=== PATIENT | female | born 1955 | race Caucasian/White ===

== ENCOUNTER 2020-04-08 12:19 | Outpatient (REF) | payer OTHER, SELFPAY | END 2020-04-08 12:20 | disposition home or self-care (01) | LOC: HO.LAB 12:19 | PROVIDERS: Visit Provider Hospitalist | DX: Z20.822 Contact with and (suspected) exposure to COVID-19 (principal) | CPT/HCPCS: 36415; U0003 ==

== ENCOUNTER 2023-11-02 13:55 | Outpatient (AMB) | payer MEDICARE, SELFPAY ==
--- NOTE | 2023-11-02 14:04 | MHC.PC.OV ---
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 Allergies Sulfa (Sulfonamide Antibiotics) Allergy (Mild, Verified 11/02/23 14:09) Rash sulfamethoxazole [From Bactrim] Allergy (Unknown, Verified 11/02/23 14:09) Hives trimethoprim [From Bactrim] Allergy (Unknown, Verified 11/02/23 14:09) Hives Medication List - Last Reconciled 11/02/23 by Maureen Sapp MD acetaminophen (Tylenol) 325 mg PO QID PRN amoxicillin-pot clavulanate 875-125 mg 1 tab PO BID 10 days ascorbate calcium-bioflavonoid 1,000-200 mg (Esha-C with Bioflavonoids) tabs PO aspirin (Shoshana Low Dose Aspirin) 81 mg PO DAILY atorvastatin 80 mg PO DAILY calcitriol 0.5 mcg PO DAILY hydrochlorothiazide 12.5 mg PO DAILY ibuprofen (Advil) 200 mg PO Q6H PRN levothyroxine (Levo-T) 125 mcg PO DAILY losartan 50 mg PO DAILY magnesium oxide 400 mg PO DAILY metformin ER 750 mg PO BID Tobacco use date assessed: 11/02/23 Fall risk assessment: 1 Fall in past year (3- 4 steps on bottom of cellar stairs, no injury) Last assessed Fall Risk: 11/02/23 Dental Screening Dental Screen Date: 11/02/23 Did you have a dental visit in the last 12 months?: No Did you have a dental problem in the last 6 months where you did not have access to dental care?: No Was dental information given to patient?: Patient has dentist HPI HPI Comments History of Present Illness Details The patient is a 68-year-old female with a past medical history of hypertension, type 2 diabetes, hypothyroid, hyperlipidemia, osteoarthritis, breast mass presenting to [facility]. Endo: Follows with Dr Spence Type 2 diabetes: Patient is currently on metformin 500 mg twice daily. On Arb and statin. Sees Ophthalmology, Dr Rondon in [place]. Hypothyroid: s/p partial or total thyroidectomy CV: Follows with Dr. Guzman. She is taking hydrochlorothiazide 12.5 mg daily, losartan 50 mg daily, atorvastatin 80 mg daily and ASA 81mg daily. HS CRP 3.0. BP controlled on current medication MSK: She follows with [facility], Dr. Foster. She underwent left total knee replacement in 11/08/2022. Last hemoglobin in July 2023 was 11 3 with an MCV of 90.9 ROS CONSTITUTIONAL: Denies weight loss, fever and chills. HEENT: Denies changes in vision and hearing. RESPIRATORY: Denies SOB and cough. CV: Denies palpitations and CP GI: Denies abdominal pain, nausea, vomiting and diarrhea. : Denies dysuria and urinary frequency. MSK: Denies new myalgia and joint pain. SKIN: Denies rash and pruritus. NEUROLOGICAL: Denies headache PSYCHIATRIC: Denies recent changes in mood. PHYSICAL EXAM: GENERAL: Alert and oriented x 3. NAD EYES: EOMI. Anicteric. HENT: Moist mucous membranes. No scleral icterus. No cervical lymphadenopathy. LUNGS: Clear to auscultation bilaterally. CARDIOVASCULAR: Regular rate and rhythm. No murmur. No JVD. ABDOMEN: Soft, non-tender +bs EXTREMITIES: No edema. Non-tender. SKIN: No rashes or lesions. Warm. NEUROLOGIC: No focal neurological deficits. CN II-XII grossly intact PSYCHIATRIC: Cooperative. Appropriate mood and affect [facility] Medical History (Updated 11/14/23 @ 11:03 by Maureen Sapp MD) History of bone scan Hx of mammogram Obesity Hypothyroidism Hypercholesterolemia Hypertension Diabetes Dense breast tissue on mammogram Atypical ductal hyperplasia of left breast Arthritis Surgical History (Updated 11/02/23 @ 08:38 by Dagmar Nelson CMA) History of thyroidectomy Hx of knee surgery Family History (Updated 11/02/23 @ 08:44 by Dagmar Nelson CMA) Father Prostate cancer Maternal Grandfather Prostate cancer Son Testicular cancer, Onset Age: 37 Maternal Grandmother Brain tumor Sister ALS (amyotrophic lateral sclerosis) Social History (Updated 11/02/23 @ 14:16 by Hilda James CMA) Housing: House Alcohol intake: current Alcohol intake frequency: a few times a month Patient Tobacco Use Status: Never used Tobacco e-Cigarette/Vaping Use: Never Used service: No Current occupational status: employed 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 1. Little interest or pleasure in doing things: not at all 2. Feeling down, depressed, or hopeless: not at all 3. Trouble falling or staying asleep, or sleeping too much: not at all 4. Feeling tired or having little energy: not at all 5. Poor appetite or overeating: not at all 6. Feeling bad about yourself - or that you are a failure or have let yourself or your family down: not at all 7. Trouble concentrating on things, such as reading the newspaper or watching television: not at all 8. Moving or speaking so slowly that other people could have noticed. Or the opposite - being so fidgety or restless that you have been moving around a lot more than usual: not at all 9. Thoughts that you would be better off or of hurting yourself in some way: not at all Total score: 0 Depression Screening Interpretation: Negative Depression Screening Done: Yes 78656 - PHQ-9 Billing: Yes Source: Developed by Drs. Tony Lin, Fiorella Garza, Marcio Glass and colleagues, with an educational jen from [employer]. Thrive Questionnaire Date Thrive assessed: 11/02/23 I am a: Patient What is your living situation today?: I have a steady place to live Within the past 12 months, did the food you bought not last and you didn't have the money to get more?: Never true Within the past 12 months, did you worry whether your food would run out before you got money to buy more?: Never true Do you have trouble paying for medicines?: No Do you have trouble getting transportation to medical appointments?: No Do you have trouble paying your heating and electricity bill?: No Do you have trouble taking care of your child, family member or friend?: No Do you have trouble with day-to-day activities such as bathing, preparing meals, shopping, managing finances, etc.?: No Are you currently unemployed and looking for a job?: No Are you interested in more education?: No Please select the resources that you would like help with: None THRIVE Score: 0 AUDIT C Alcohol Use Questionnaire (AUDIT-C) 1. How often do you have a drink containing alcohol?: Monthly or less 2. How many drinks containing alcohol do you have on a typical day when you are drinking?: 1 or 2 3. How often do you have six or more drinks on one occasion?: Never Total Score: 1 CRISTOPHER-7 AMB Questionnaire CRISTOPHER-7 Date CRISTOPHER - 7 assessed: 11/02/23 Feeling nervous, anxious, or on edge: 0 = Not at all Not being able to stop or control worryin = Not at all Worrying too much about different things: 0 = Not at all Trouble relaxin = Not at all Being so restless that it is hard to sit still: 0 = Not at all Becoming easily annoyed or irritable: 0 = Not at all Feeling afraid as if something awful might happen: 0 = Not at all Total CRISTOPHER-7 score (0-4 normal; 5-9 mild; 10-14 moderate; 15-21 severe): 0 Source: Developed by Drs. Tony Lin, Fiorella Garza, Marcio Glass and colleagues, with an educational jen from [employer]. CRISTOPHER-7 Assessment Billing CRISTOPHER-7 Assessment Tool: CRISTOPHER-7 Assessment [id number] Physical exam (Primary Care) Vital Signs: Last Vital Signs Pulse 77 11/02/23 14:18 Resp 16 11/02/23 14:18 BP 126/80 11/02/23 14:18 Pulse Ox 94 11/02/23 14:18 Oxygen Delivery Method Room Air 11/02/23 14:18 BMI result Body Mass Index 33.2 Tobacco/Smoking Status: Tobacco use Status Tobacco use date assessed 11/02/23 11/02/23 14:20 Patient Tobacco Use Status Never used Tobacco 11/02/23 14:16 e-Cigarette/Vaping Use Never Used 11/02/23 14:16 PHQ-9: PHQ-9 Score PHQ-9: Total score 0 11/14/23 10:58 Depression Screening Interpretation: Negative Thrive Assessment: Date of Thrive Assessment Date Thrive assessed 11/02/23 11/02/23 15:20 Assessment and Plan Assessment & Plan (1) Atypical ductal hyperplasia of left breast: Code(s): N60.92 - Unspecified benign mammary dysplasia of left breast (2) Diabetes: Code(s): E11.9 - Type 2 diabetes mellitus without complications Qualifiers: Diabetes mellitus complication status: with other specified complication Diabetes mellitus retirement insulin use: without retirement use Diabetes mellitus type: type 2 Qualified Code(s): E11.69 - Type 2 diabetes mellitus with other specified complication Plan: continue follow up endocrinology (3) Hypertension: Code(s): I10 - Essential (primary) hypertension Qualifiers: Hypertension type: primary hypertension Qualified Code(s): I10 - Essential (primary) hypertension (4) Hypercholesterolemia: Code(s): E78.00 - Pure hypercholesterolemia, unspecified (5) Hypothyroidism: Code(s): E03.9 - Hypothyroidism, unspecified Qualifiers: Hypothyroidism type: unspecified Qualified Code(s): E03.9 - Hypothyroidism, unspecified Plan: monitor thyroid (6) Encounter to establish care: Code(s): Z76.89 - Persons encountering health services in other specified circumstances Plan: 68 y/o to establish care. past medical, surgical, social and family history reviewed Orders: Orders Complete Blood Count Auto Diff 3 Months E03.9 - Hypothyroidism, unspecified, I10 - Essential (primary) hypertension, E78.00 - Pure hypercholesterolemia, unspecified, N60.92 - Unspecified benign mammary dysplasia of left breast, Z76.89 - Persons encountering health services in other specified circumstances, E11.9 - Type 2 diabetes mellitus without complications Comprehensive Met. Panel 3 Months E03.9 - Hypothyroidism, unspecified, I10 - Essential (primary) hypertension, E78.00 - Pure hypercholesterolemia, unspecified, N60.92 - Unspecified benign mammary dysplasia of left breast, Z76.89 - Persons encountering health services in other specified circumstances, E11.9 - Type 2 diabetes mellitus without complications Lipid Panel 3 Months E03.9 - Hypothyroidism, unspecified, I10 - Essential (primary) hypertension, E78.00 - Pure hypercholesterolemia, unspecified, N60.92 - Unspecified benign mammary dysplasia of left breast, Z76.89 - Persons encountering health services in other specified circumstances, E11.9 - Type 2 diabetes mellitus without complications Hemoglobin A1c 3 Months E03.9 - Hypothyroidism, unspecified, I10 - Essential (primary) hypertension, E78.00 - Pure hypercholesterolemia, unspecified, N60.92 - Unspecified benign mammary dysplasia of left breast, Z76.89 - Persons encountering health services in other specified circumstances, E11.9 - Type 2 diabetes mellitus without complications TSH reflex Free T4 3 Months E11.9 - Type 2 diabetes mellitus without complications Vitamin B12 and Folate 3 Months E03.9 - Hypothyroidism, unspecified Medications: New amoxicillin-pot clavulanate 875-125 mg 1 tab PO BID 20 tabs 0RF 10 days mecobalamin (vitamin B12) can sub soft gel 1,000 mcg PO DAILY 90 tabs 3RF 90 days tamoxifen 20 mg PO DAILY Coding Level of Care Code New Pt Level 4 (25791) Complex EM visit Add On G2211 Diagnoses Atypical ductal hyperplasia of left breast N60.92 Type 2 diabetes mellitus with other specified complication, without long-term current use of insulin E11.69 Diabetes mellitus complication status: with other specified complication 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
[2023-11-02 14:18] VITALS: BP 126/80; PULSE 77; RESP 16; O2SAT 94; BMI 33.2
== END 2023-11-02 15:22 | disposition home or self-care (01) ==
PROVIDERS: PCP Internal Medicine; Visit Provider Internal Medicine
DX: E11.69 Type 2 diabetes mellitus with other specified complication (principal); N60.92 Unspecified benign mammary dysplasia of left breast; I10 Essential (primary) hypertension; E78.00 Pure hypercholesterolemia, unspecified; E03.9 Hypothyroidism, unspecified; Z76.89 Persons encountering health services in other specified circumstances
CPT/HCPCS: 99204; G2211

== ENCOUNTER 2024-02-08 11:53 | Outpatient (REF) | payer MEDICARE, SELFPAY ==
[2024-02-08 14:24] LABS: MANUAL DIFF FLAG NO
[2024-02-08 14:40] LABS: Basophils Absolute Auto 0.1 X10*3/uL (0.0-0.2); Basophils Percent Auto 0.8 % (0-2); Eosinophils Absolute Auto 0.2 X10*3/uL (0.0-0.4); Eosinophils Percent Auto 3.1 % (0-4); Hematocrit 34.8 % (37.0-47.0); Hemoglobin 11.5 g/dl (12.0-16.0); Imm Gran Abs Auto 0.03 X10*3/uL (0.00-0.03); Imm Gran Pct Auto 0.5 % (0.0-0.4); Lymphocytes Absolute Auto 1.9 X10*3/uL (1.2-4.9); Lymphocytes Percent Auto 29.6 % (20-40); Mean Corpuscular Hemoglobin 29.5 pg (27.0-33.0); Mean Corpuscular Volume 89.2 fL (80.0-98.0); Monocytes Absolute Auto 0.4 X10*3/uL (0.1-1.2); Monocytes Percent Auto 6.8 % (2-11); Neutrophils Absolute Auto 3.9 x10*3/uL (2.0-8.3); Neutrophils Percent Auto 59.2 % (45-73); Platelet Count 299 X10*3/uL (160-400); Red Cell Distribution Width 13.8 % (11.0-16.0); White Blood Count 6.5 X10*3/uL (4.8-10.8)
[2024-02-08 15:08] LABS: Estimated Average Glucose 157 mg/dL; Hemoglobin A1C 147.5085 umol/L; Hemoglobin A1c % 7.1 % (<6.0); Total Hemoglobin (HGBA1C) 2700.7325 umol/L
[2024-02-08 15:51] LABS: Folate 12.6 ng/mL (> or = 4.0); Vitamin B12 878 pg/mL (200-900)
[2024-02-08 16:50] LABS: Alanine Aminotransferase 18 U/L (0-31); Albumin Level 4.3 g/dL (3.5-5.0); Anion Gap 17 (12-20); Aspartate Amino Transferase 24 U/L (5-31); Bilirubin Total 0.5 mg/dL (0.0-1.0); Blood Urea Nitrogen 22 mg/dL (9-16); Calcium 10.1 mg/dL (8.4-10.2); Carbon Dioxide 24 mmol/L (22-29); Chloride 104 mmol/L (96-108); Cholesterol 182 mg/dL (<200); Estimated Glomerular Filt Rate 58; Glucose Random 138 mg/dL (60-115); HDL Cholesterol 53 mg/dL (>40); LDL Cholesterol Calculated 101 mg/dL (<100); Potassium 3.8 mmol/L (3.3-5.1); Sodium 141 mmol/L (135-145); TSH reflex Free T4 3.04 uIU/mL (0.32-4.0); Total Protein 7.2 g/dL (6.5-8.0); Triglycerides 143 mg/dL (<150)
[2024-02-08 17:27] LABS: Alkaline Phosphatase 81 U/L (39-117)
== END 2024-02-08 11:54 | disposition home or self-care (01) ==
LOC: HO.WFDLDS 11:53
PROVIDERS: Visit Provider Internal Medicine
DX: E03.9 Hypothyroidism, unspecified (principal); I10 Essential (primary) hypertension; E78.00 Pure hypercholesterolemia, unspecified; N60.92 Unspecified benign mammary dysplasia of left breast; Z76.89 Persons encountering health services in other specified circumstances; E11.9 Type 2 diabetes mellitus without complications
CPT/HCPCS: 36415; 80053; 80061; 82607; 82746; 83036; 84443; 85025

== ENCOUNTER 2024-02-11 08:50 | Outpatient (AMB) | payer MEDICARE, SELFPAY ==
--- NOTE | 2024-02-11 09:06 | MHC.PC.OV ---
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 Allergies amoxicillin Allergy (Severe, Verified 02/11/24 09:08) Rash Sulfa (Sulfonamide Antibiotics) Allergy (Mild, Verified 02/11/24 09:07) Rash sulfamethoxazole [From Bactrim] Allergy (Unknown, Verified 02/11/24 09:07) Hives trimethoprim [From Bactrim] Allergy (Unknown, Verified 02/11/24 09:07) Hives Tobacco use date assessed: 11/02/23 Dental Screening Dental Screen Date: 11/02/23 HPI HPI Comments History of Present Illness Details The patient is a 68-year-old female with a past medical history of hypertension, type 2 diabetes, hypothyroid, hyperlipidemia, osteoarthritis, breast mass presenting for follow up Endo: Followed with Dr Spence. She is seeing his replacement on Wednesday Type 2 diabetes: Patient is currently on metformin 500 mg twice daily. A1C is 7.1% On Arb and statin. Sees Ophthalmology, Dr Rondon in [place]. Hypothyroid: s/p partial or total thyroidectomy CV: Follows with Dr. Guzman. She is taking hydrochlorothiazide 12.5 mg daily, losartan 50 mg daily, atorvastatin 80 mg daily and ASA 81mg daily. HS CRP 3.0. BP controlled on current medication MSK: She follows with [facility], Dr. Foster. She underwent left total knee replacement in 11/08/2022, right knee replacement 12/03/23 Last hemoglobin in July 2023 was 11.3 with an MCV of 90.9 Colon cancer screening: Colonoscopy at [facility] with Dr Brunner. ROS CONSTITUTIONAL: Denies weight loss, fever and chills. HEENT: Denies changes in vision and hearing. RESPIRATORY: Denies SOB and cough. CV: Denies palpitations and CP GI: Denies abdominal pain, nausea, vomiting and diarrhea. : Denies dysuria and urinary frequency. MSK: Denies new myalgia and joint pain. SKIN: Denies rash and pruritus. NEUROLOGICAL: Denies headache PSYCHIATRIC: Denies recent changes in mood. PHYSICAL EXAM: GENERAL: Alert and oriented x 3. NAD EYES: EOMI. Anicteric. HENT: Moist mucous membranes. No scleral icterus. No cervical lymphadenopathy. LUNGS: Clear to auscultation bilaterally. CARDIOVASCULAR: Regular rate and rhythm. No murmur. No JVD. ABDOMEN: Soft, non-tender +bs EXTREMITIES: No edema. Non-tender. SKIN: No rashes or lesions. Warm. NEUROLOGIC: No focal neurological deficits. CN II-XII grossly intact PSYCHIATRIC: Cooperative. Appropriate mood and affect [facility] Medical History (Updated 11/14/23 @ 11:03 by Maureen Sapp MD) History of bone scan Hx of mammogram Obesity Hypothyroidism Hypercholesterolemia Hypertension Diabetes Dense breast tissue on mammogram Atypical ductal hyperplasia of left breast Arthritis Surgical History (Updated 11/02/23 @ 08:38 by Dagmar Nelson [facility]) History of thyroidectomy Hx of knee surgery Family History (Updated 02/11/24 @ 09:17 by Hilda James [facility]) Father Prostate cancer Maternal Grandfather Prostate cancer Son Testicular cancer, Onset Age: 37 Maternal Grandmother Brain tumor Sister ALS (amyotrophic lateral sclerosis) Social History (Updated 11/02/23 @ 14:16 by Hilda James [facility]) Housing: House Alcohol intake: current Alcohol intake frequency: a few times a month Patient Tobacco Use Status: Never used Tobacco e-Cigarette/Vaping Use: Never Used service: No Current occupational status: employed 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 1. Little interest or pleasure in doing things: not at all 2. Feeling down, depressed, or hopeless: not at all 3. Trouble falling or staying asleep, or sleeping too much: not at all 4. Feeling tired or having little energy: not at all 5. Poor appetite or overeating: not at all 6. Feeling bad about yourself - or that you are a failure or have let yourself or your family down: not at all 7. Trouble concentrating on things, such as reading the newspaper or watching television: not at all 8. Moving or speaking so slowly that other people could have noticed. Or the opposite - being so fidgety or restless that you have been moving around a lot more than usual: not at all 9. Thoughts that you would be better off or of hurting yourself in some way: not at all Total score: 0 Depression Screening Interpretation: Negative Depression Screening Done: Yes Source: Developed by Drs. Tony Lin, Fiorella Garza, Marcio Glass and colleagues, with an educational jen from [employer]. Thrive Questionnaire Date Thrive assessed: 02/11/24 I am a: Patient What is your living situation today?: I have a steady place to live THRIVE Score: 0 CRISTOPHER-7 AMB Questionnaire CRISTOPHER-7 Date CRISTOPHER - 7 assessed: 11/02/23 Source: Developed by Drs. Tony Lin, Fiorella Garza, Marcio Glass and colleagues, with an educational jen from [employer]. Physical exam (Primary Care) Tobacco/Smoking Status: Tobacco use Status Tobacco use date assessed 11/02/23 02/11/24 09:11 Patient Tobacco Use Status Never used Tobacco 02/11/24 09:11 e-Cigarette/Vaping Use Never Used 02/11/24 09:11 PHQ-9: PHQ-9 Score PHQ-9: Total score 0 02/11/24 09:11 Depression Screening Interpretation: Negative Thrive Assessment: Date of Thrive Assessment Date Thrive assessed 02/11/24 02/11/24 09:11 Coding Level of Care Code Est Pt Level 4 (15992) Diagnoses Primary hypertension I10 Hypertension type: primary hypertension Type 2 diabetes mellitus with other specified complication, without long-term current use of insulin E11.69 Diabetes mellitus type: type 2 Diabetes mellitus correction insulin use: without correction use Diabetes mellitus complication status: with other specified complication Assessment & Plan Assessment & Plan (1) Hypertension: Code(s): I10 - Essential (primary) hypertension Category: Medical Qualifiers: Hypertension type: primary hypertension Qualified Code(s): I10 - Essential (primary) hypertension Plan: controlled on current medication (2) Diabetes: Code(s): E11.9 - Type 2 diabetes mellitus without complications Category: Medical Qualifiers: Diabetes mellitus type: type 2 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 Has follow up scheduled with endocrine on Wednesday
[2024-02-11 09:15] VITALS: BP 108/76; PULSE 91; O2SAT 97; BMI 31.6
== END 2024-02-11 10:47 | disposition home or self-care (01) ==
PROVIDERS: PCP Internal Medicine; Visit Provider Internal Medicine
DX: I10 Essential (primary) hypertension (principal); E11.69 Type 2 diabetes mellitus with other specified complication

== ENCOUNTER → 2024-02-11 08:50 | Outpatient (BNVA) | payer MEDICARE, SELFPAY | PROVIDERS: PCP Internal Medicine; Visit Provider Internal Medicine | DX: E11.69 Type 2 diabetes mellitus with other specified complication (principal); I10 Essential (primary) hypertension; Z79.82 Long term (current) use of aspirin; Z79.84 Long term (current) use of oral hypoglycemic drugs; Z79.899 Other long term (current) drug therapy; Z96.653 Presence of artificial knee joint, bilateral | CPT/HCPCS: 96127; 99212 ==

== ENCOUNTER → 2024-04-28 14:42 | Outpatient (BNVA) | payer MEDICARE, SELFPAY | PROVIDERS: PCP Internal Medicine; Visit Provider Internal Medicine | DX: I10 Essential (primary) hypertension (principal); E11.9 Type 2 diabetes mellitus without complications; E03.9 Hypothyroidism, unspecified; E78.5 Hyperlipidemia, unspecified; N20.0 Calculus of kidney | CPT/HCPCS: 96127; 99212 ==

== ENCOUNTER 2024-06-28 09:33 | Outpatient (REF) | payer MEDICARE, SELFPAY ==
[2024-06-28 13:33] LABS: Influenza A PCR NEGATIVE (Negative); Influenza B PCR NEGATIVE (Negative); Resp Syncy Virus RNA Qual PCR NEGATIVE (Negative); SARS COV2 PCR INHOUSE POSITIVE (Negative)
--- OUTSIDE RECORDS SUMMARY | 2024-06-28 13:46 | XMS_ITS | Clinical Summary ---
Author Organization [facility] Address [address] [place] [address] Care Team Providers Care Operating Room Nurse Name Role Phone Unavailable Primary Care Provider [...]
--- OUTSIDE RECORDS SUMMARY | 2024-06-28 13:46 | XMS_ITS | Continuity of Care Document ---
Author Organization [facility] Address [address] [place] [address] Phone [phone] Care Team Providers Care Six Pack Packer Name Role Phone Joycelyn See NP Care Team Information Receiv er [phone] Maureen Griffith M.D. Care Team Information Medical Affairs Manager [phone] Problems Active Problems Provider Date Hypothyroidism Stu [...] the PM lilly Hodges M.D. 11/05/2023 Caltrate 600+[id number] Tablets take two tab in the Am and two in pm Stu Spence M.D. 10/01/2022 Itydsqeprbasjsetjnq07. 5mg Capsules Take 1 Capsule By Mouth Once Daily For Blood Pressure 90caps Donna Hodges M.D. 08/31/2022 Levothyroxine Otapbe436ksm Tablets Take 1 tablet by mouth once daily 90paige Hodges M.D. 08/20/2022 Losartan Mjneunuqs251fw Tablets Take half Tablet By Mouth Once Daily Aldo Madera M.D. Freestyle Lite TestStrips Use 1 Strip To Check Glucose Once Daily Fiorella Aguirre Atorvastatin Uocidnd16jf Tablets Take 1 Tablet By Mouth AT Bedtime Aldo Madera M.D. Metformin HCL JK415zr Tablets ER 24HR take 1 tablet by mouth twice a day 90tabs Timothy Fiorella Magnesium-Kqzbs455(240 Mg) mg Tablets Take 1 Tablet By Mouth Once Daily [facility] Tamoxifen Xkzxjby73gn Tablets Take 1/2 (One-Half) Tablet By Mouth [...] Lab Albumin 4.8 GM/DL (3.4-4.8) Calcium 10/08/2022 [facility] Calcium 9.1 mg/dL (8.6-10.5 ) TSH With Reflex To FT4 10/01/2022 [facility] TSH With Reflex To FT4 0.60 uIU/mL (0.4-4.2) Calcium 10/01/2022 [facility] Calcium 10.3 mg/dL (8.6-10.5 ) Albumin 10/01/2022 [facility] Albumin 4.9 GM/DL High (3.4-4.8) Glucose Fingerstick 10/01/2022 Inhouse Glucose Fingerstick 130 1 Vitamin D deficiency has been defined by the [place] [employer] and an Endocrine Society practice guideline as a level of serum 25-OH vitamin D less than 20 ng/mL (1,2). The Endocrine Society went on to further define vitamin D insufficiency as a level between 21 and 29 ng/mL (2). 1. IOM ([place] [employer]). 2010. Dietary reference intakes for [...]
== END 2024-06-28 09:34 | disposition home or self-care (01) ==
LOC: HO.LNP 09:33
PROVIDERS: PCP Internal Medicine; Visit Provider Nurse Practitioner Family
DX: R50.9 Fever, unspecified (principal); R09.89 Other specified symptoms and signs involving the circulatory and respiratory systems; R68.89 Other general symptoms and signs
CPT/HCPCS: 0241U; 99212

== ENCOUNTER → 2024-06-28 09:33 | Outpatient (AMB) | payer MEDICARE, SELFPAY ==
--- OUTSIDE RECORDS SUMMARY | 2024-06-28 10:21 | XMS_ITS ---
Author Organization [facility] [employer] [facility] Address [address] [place] [id number] Care Team Providers Care Solar Panel Technician Name Role Phone YULY CABA Primary Care Provider [phone] APPLEPIOTRDAWITET Unavailable [phone] REASON FOR VISIT Refills MEDICATIONS Medication SIG (Take, Route, Frequency, Duration) Notes Start Date End Date Status Calcitriol 0.5 MCG 1 capsule Orally once a day Unknown Caltrate 600+D 2 in the am and 1 in the pm Unknown Advil 200 MG 1 tablet with food or milk as needed Orally Three times a day Unknown Acetaminophen ER 650 MG 2 tablets as nee ded Orally every 8 hrs Unknown hydroCHLOROthiazide 12.5 MG 1 tablet in the morning Oral Once a day Unknown FreeStyle Lancets - use as directed once daily for 90 days 09/16/2023 Active FreeStyle Lite Test - as directed In Vitro once daily for 90 days 09/16/2023 Active Tamoxifen Citrate 10 MG 1/2 tab Orally daily 5mg daily Unknown Albuterol Sulfate HFA 108 (90 Base) MCG/ACT 2 puff as needed Inhalation every 4 hrs for 30 days 04/22/2023 Unknown Ozempic (0.25 or 0.5 MG/DOSE) 2 MG/3ML 0.25mg Subcutaneous weekly for 30 days 04/22/2023 Unknown Losartan Potassium 50 MG Take 1 tablet b y mouth once daily for 90 Unknown Meclizine HCl 25 MG 1 tablet as needed Orally every 12 hrs for 30 days 03/12/2023 Unknown metFORMIN HCl ER 750 MG 1 tab with meal Orally twice a day for 90 days 08/10/2023 Unknown Medrol 4 MG as directed Orally daily for 6 days 04/22/2023 Unknown Azithromycin 250 MG as directed Orally daily for 5 days 04/22/2023 Unknown Atorvastatin Calcium 80 MG 1 tablet Oral ly Once a day Unknown Levothyroxine Sodium 125 MCG 1 tablet in the morning on an empty stomach Orally Once a day Unknown AeroChamber MV - as directed for 30 days 04/22/2023 Unknown Encounters Encounter Location Date Provider Diagnosis [address] [id number] 09/16/2023 NORA VELASCO Type 2 diabetes mellitus with diabetic peripheral angiopathy without gangrene, without long-term current use of insulin E11.51 ASSESSMENTS Encounter Date Diagnosis Assessment Notes Treatment Notes Treatment Clinical Notes Section Notes 09/16/2023 Type 2 diabetes mellitus with diabetic peripheral angiopathy without gangrene, without long-term current use of insulin (ICD-10 - E11.51) PLAN OF TREATMENT Medication Medication Name Sig Start Date Stop Date Notes FreeStyle Lancets - use as directed once daily for 90 days 09/16/2023 FreeStyle Lite Test - as directed In Vit ro once daily for 90 days 09/16/2023 Progress Notes * SALIMA GONZALEZ:[birth year] (68 yo F)Acc No.[id number]:09/16/2023 Patient:??FILIBERTO GONZALEZA :1955?Age:68 Y?Sex:Fe male Address:[address] [place] [id number] * Refills?? Start FreeStyle Lite Test Strip, -, In Vitro, 90, as directed, once daily, 90 days, Refills=3 Start FreeStyle Lancets Miscellaneous, -, 90, use as directed once daily, 90 days, Refills=3 Subjective: * Chief Complaints: * ?Refills * Medical History:?? * Surgical History:?? * Hospitalization/Major Diagno stic Procedure:?? * Medications:??UnknownTamoxif en Citrate 10 MG Tablet 1/2 tab Orally daily 5mg daily, Notes to Pharmacist: 5mg dailyAdvil 200 MG Tablet 1 tablet with food or milk as needed Orally Three times a day Acetaminophen ER 650 MG Tablet Extended Release 2 tablets as needed Orally every 8 hrs Calcitriol 0.5 MCG Capsule 1 capsule Orally once a day Caltrate 600+D , Notes to Pharmacist: 2 in the am and 1 in the pmhydroCHLOROthiazide 12.5 MG Tablet 1 tablet in the morning Oral Once a day Atorvastatin Calcium 80 MG Tablet 1 tablet Orally Once a day Levothyroxine Sodium 125 MCG Tablet 1 tablet in the morning on an empty stomach Orally Once a day AeroChamber MV - Miscellaneous as directed metFORMIN HCl ER 750 MG Tablet Extended Release 24 Hour 1 tab with meal Orally twice a day Losartan Potassium 50 MG Tablet Take 1 tablet by mouth once daily Meclizine HCl 25 MG Tablet 1 tablet as needed Orally every 12 hrs Medrol 4 MG Tablet Therapy Pack as directed Orally daily take as packaged directedAzithromycin 250 MG Tablet as directed Orally daily take 2 tabs day one then one tab daily x 4 daysAlbuterol Sulfate HFA 108 (90 Base) MCG/ACT Aerosol Solution 2 puff as needed Inhalation every 4 hrs take with spacerOzempic (0.25 or 0.5 MG/DOSE) 2 MG/3ML Solution Pen-injector 0.25mg Subcutaneous weekly Unknown Tamoxifen Citrate 10 MG Tablet 1/2 tab Orally daily 5mg daily, Notes to Pharmacist: 5mg dailyUnknown Advil 200 MG Tablet 1 tablet with food or milk as needed Orally Three times a day Unknown Acetaminophen ER 650 MG Tablet Extended Release 2 tablets as needed Orally every 8 hrs Unknown Calcitriol 0.5 MCG Capsule 1 capsule Orally once a day Unknown Caltrate 600+D , Notes to Pharmacist: 2 in the am and 1 in the pmUnknown hydroCHLOROthiazide 12.5 MG Tablet 1 tablet in the morning Oral Once a day Unknown Atorvastatin Calcium 80 MG Tablet 1 tablet Orally Once a day Unknown Levothyroxine Sodium 125 MCG Tablet 1 tablet in the morning on an empty stomach Orally Once a day Unknown AeroChamber - Miscellaneous as directed Unknown metFORMIN HCl ER 750 MG Tablet Extended Release 24 Hour 1 tab with meal Orally twice a day Unknown Losartan Potassium 50 MG Tablet Take 1 tablet by mouth once daily Unknown Meclizine HCl 25 MG Tablet 1 tablet as needed Orally every 12 hrs Unknown Medrol 4 MG Tablet Therapy Pack as directed Orally daily take as packaged directedUnknown Azithromycin 250 MG Tablet as directed Orally daily take 2 tabs day one then one tab daily x 4 daysUnknown Albuterol Sulfate HFA 108 (90 Base) MCG/ACT Aerosol Solution 2 puff as needed Inhalation every 4 hrs take with spacerUnknown Ozempic (0.25 or 0.5 MG/DOSE) 2 MG/3ML Solution Pen-injector 0.25mg Subcutaneous weekly Objective: Assessment: * Assessment: 1.??Type 2 diabetes mellitus with diabetic peripheral angiopathy without gangrene, without long-term current use of insulin - E11.51 (Primary)?? Plan: * Treatment: * Procedure Codes:?? * true * Date:??
--- OUTSIDE RECORDS SUMMARY | 2024-06-28 10:21 | XMS_ITS | Continuity of Care Document ---
Author Organization [facility] Address [address] [place] [address] Phone [phone] Care Team Providers Care Poising Inspector Name Role Phone Joycelyn See NP Care Team Information Receiv er [phone] Maureen Griffith M.D. Care Team Information Tarper [phone] Problems Active Problems Provider Date Hypothyroidism Stu Spence M.D. Onset: Anemia Stu Spence M.D. Onset: 01/2023 Type 2 diabetes mellitus Stu Spence M.D. O nset: 03/01/2023 Essential hypertension Stu Spence M.D. Ons et: 10/01/2022 Hypoparathyroidism Stu Spence M.D. Onset: 10/01/2022 Prediabetes Stu Spence M.D. Onset: Social History Type Date Description Comments Sex Unknown Tobacco Use Start: Unknown Never Smoked Cigarettes ETOH Use Rarely consumes alcohol Allergies and adverse reactions Active Allergies Criticality Reaction Severity Comments Date Bactrim Unable to assess criticality 10/01/2022 Sulfamethoxazole Unable to assess criticality 10/01/2022 Augmentin Unable to assess criticality 10/01/2022 Medications Active Medications SIG Qnty Indications Order ing Provider Date Rocaltrol0.5mcg Capsules Take 1 tablet in the Am and one in the PM lilly Hodges M.D. 11/05/2023 Caltrate 600+[id number] Tablets take two tab in the Am and two in pm Stu Spence M.D. 10/01/2022 Waxzftxiceoqablcetx16. 5mg Capsules Take 1 Capsule By Mouth Once Daily For Blood Pressure 90caps Donna Hodges M.D. 08/31/2022 Levothyroxine Vhfcuv920wle Tablets Take 1 tablet by mouth once daily 90paige Hodges M.D. 08/20/2022 Losartan [id number] Tablets Take half Tablet By Mouth Once Daily Aldo Madera M.D. Freestyle Lite TestStrips Use 1 Strip To Check Glucose Once Daily Fiorella Aguirre Atorvastatin Souxfmm22vp Tablets Take 1 Tablet By Mouth AT Bedtime Aldo Madera M.D. Metformin HCL [id number] Tablets ER 24HR take 1 tablet by mouth twice a day 90tabs Timothy Fiorella Magnesium-Pykva935(240 Mg) mg Tablets Take 1 Tablet By Mouth Once Daily [facility] Tamoxifen Qgcrlpv80iu Tablets Take 1/2 (One-Half) Tablet By Mouth Once Daily Rasheeda Brock Vital Signs Date Vital Result Comment 02/14/2024 8:03am BP Systolic 122 mmHg BP Diastolic 76 mmHg Heart Rate 102 /min Height 66 inches 5'6 Weight 187.50 lb BMI (Body Mass Index) 30.3 kg/m2 Results Test Acquired Date Facility Test Result H/L Range Note Calcium 02/08/2024 [facility] Calcium 9.9 mg/dL 8.7-10.3 Albumin 02/08/2024 [facility] Albumin 4.5 g/dL 3.9-4.9 Phosphorus 02/08/2024 [facility] Phosphorus 3.7 mg/dL 3.0-4.3 Vitamin D, 25-Hydroxy 02/08/2024 [facility] Vitamin D, 25-Hydroxy 38.4 ng/mL 30.0-100. 0 1 TSH Rfx on Abnormal to Free T4 11/05/2023 [facility] TSH Rfx on Abnormal to Free T4 2.180 uIU/mL 0.450-4.5 00 Albumin 10/08/2022 [facility] Albumin 4.8 GM/DL (3.4-4.8) Calcium 10/08/2022 [facility] Calcium 9.1 mg/dL (8.6-10.5 ) TSH With Reflex To FT4 10/01/2022 [facility] TSH With Reflex To FT4 0.60 uIU/mL (0.4-4.2) Calcium 10/01/2022 [facility] Calcium 10.3 mg/dL (8.6-10.5 ) Albumin 10/01/2022 [facility] Albumin 4.9 GM/DL High (3.4-4.8) Glucose Fingerstick 10/01/2022 [facility] Glucose Fingerstick 130 1 Vitamin D deficiency has been defined by the [place] of [employer] and an Endocrine Society practice guideline as a level of serum 25-OH vitamin D less than 20 ng/mL (1,2). The Endocrine Society went on to further define vitamin D insufficiency as a level between 21 and 29 ng/mL (2). 1. IOM ([place] of [employer]). 2010. Dietary reference intakes for calcium and D. [place]: The National Academies Press. 2. Irish MF, Brian JUNG, Alvarez PENDLETON, et al. Evaluation, treatment, and prevention of vitamin D deficiency: an Endocrine Society clinical practice guideline. JCEM. 2010; 96(7):1911-30. Medical Devices Description No Information Available Encounters Type Date Location Provider Dx Diagnosis Office Visit 02/14/2024 8:00a Main Office JESSENIA Trinh E89.0 Postprocedural hypothyroidism E89.2 Postprocedural hypop arathyroidism Assessments Date Code Description Provider 02/14/2024 E89.0 Postsurgical hypothyroidism JESSENIA Trinh 02/14/2024 E89.2 Postprocedural hypoparathyro idism JESSENIA Trinh Plan of Treatment Future Appointment(s):* 08/10/2024 9:00 am - JESSENIA Trinh at Main Office 11/05/2023 - JESSENIA Trinh* E20.9 Hypoparathyroidism, unspecified * E89.0 Postsurgical hypothyroidism * Functional Status Description No Information Available Mental Status Description No Information Available Referrals Description No Information Available
--- OUTSIDE RECORDS SUMMARY | 2024-06-28 10:22 | XMS_ITS | Clinical Summary ---
Author Organization [facility] Address [address] [place] [address] Care Team Providers Care District Associate Judge Name Role Phone Unavailable Primary Care Provider Unavailabl e Social History Tobacco Use Types Packs/Day Years Used Date Smoking Tobacco: Never Smokeless Tobacco: Never Alcohol Use Standard Drinks/Week Comments Never 0 (1 standard drink = 0.6 oz pur e alcohol) Comments Unknown Sex and Gender Information Value Date Recorded Sex Assigned at Not on file Legal Sex Female 10:21 PM EST Gender Identity Not on file Sexual Orientation Not on file Obstetrics History Last Filed Vital Signs Vital Sign Reading Time Taken Comments Blood Pressure 110/80 07/13/2022 12:54 PM EDT Pulse 58 07/13/2022 12:54 PM EDT Temperature - - Respiratory Rate - - Oxygen Saturation - - Inhaled Oxygen Concentration - - Weight 82.1 kg (181 lb) 07/13/2022 12:54 PM EDT Height 167.6 cm (5' 6 ) 07/13/2022 12:54 PM EDT Body Mass Index 29.21 07/13/2022 12:54 PM EDT Plan of Treatment Health Maintenance Due Date Last Done Comments Breast Cancer Screening 1955 DTaP,Tdap,and Td Vaccines (1 - Tdap) 09/11/1974 Pneumococcal Vaccine: 50+ Ye ars (1 of 1 - PCV) 09/11/2005 Zoster Vaccines (1 of 2) 09/11/2005 Colorectal Cancer Screening: Colonoscopy 04/20/2023 Depression Screening 04/20/2023 Falls Risk Assessment 04/20/2023 Hepatitis C Screening 04/20/2023 Osteoporosis Screening (Bone Density Screening) 04/20/2023 Social Influencers of Health Screening 04/20/2023 COVID-19 Vaccine ( - 2023-2 5 season) 2023 Influenza Vaccine (#1) 2023 RSV Immunization Adult Patie nts (1 - 1-dose 75+ series) 09/11/2030 HIB Vaccines Aged Out No longer eligi ble based on patient's age to complete this topic HPV Vaccines Aged Out No longer eligi ble based on patient's age to complete this topic Hepatitis A Vaccines Aged Out No long er eligible based on patient's age to complete this topic Hepatitis B Vaccines Aged Out No long er eligible based on patient's age to complete this topic IPV Vaccines Aged Out No longer eligi ble based on patient's age to complete this topic MMR Vaccines Aged Out No longer eligi ble based on patient's age to complete this topic Meningococcal ACWY Vaccine Aged Out N o longer eligible based on patient's age to complete this topic Meningococcal B Vaccine Aged Out No l onger eligible based on patient's age to complete this topic RSV Immunization Patients Un ting 20 months Aged Out No longer eligible b ased on patient's age to complete this topic Varicella Vaccines Aged Out No longer eligible based on patient's age to complete this topic
--- OUTSIDE RECORDS SUMMARY | 2024-06-28 10:22 | XMS_ITS ---
Author Organization [facility] Sheri Estrada Beisbol, [facility] Address [address] [place] [phone] Care Team Providers Care Safety Council Director Name Role Phone YULY CABA Primary Care Provider [phone] AJITNORA CORLEY Unavailable [phone] ALLERGIES Allergen (clinical drug ingredient) Drug/Non Drug Allergy documented on EMR Reaction Allergy Type Onset Date Status Substance with sulfonamide structure and antibacterial mechanism of action (substance) Sulfa Drugs (uncoded) Unknown Allergy Active amoxicillin / clavulanate Augmentin Unknown Drug Allergy Active sulfamethoxazole / trimethoprim Bactrim Unknown Drug Allergy Active REASON FOR VISIT F/U labs MEDICATIONS Medication SIG (Take, Route, Frequency, Duration) Notes Start Date End Date Status Ozempic (0.25 or 0.5 MG/DOSE) 2 MG/3ML 0.25mg Subcutaneous weekly for 30 days 04/22/2023 Not-Taking AeroChamber MV - as directed for 30 days 04/22/2023 Active MAGnesium-Oxide 400 (240 Mg) MG 1 tablet with food Orally Once a day for 90 days 08/10/2023 Active metFORMIN HCl ER 750 MG 1 tab with meal Orally twice a day for 90 days 08/10/2023 Active Albuterol Sulfate HFA 108 (90 Base) MCG/ACT 2 puff as needed Inhalation every 4 hrs for 30 days 04/22/2023 Not-Taking Azithromycin 250 MG as directed Orally daily for 5 days 04/22/2023 Not-Taking Medrol 4 MG as directed Orally daily for 6 days 04/22/2023 Not-Taking Meclizine HCl 25 MG 1 tablet as needed Orally every 12 hrs for 30 days 03/12/2023 Not-Taking Losartan Potassium 50 MG 1 tablet Orally Once a day for 90 days Active Calcitriol 0.5 MCG 1 capsule Orally once a day Active Levothyroxine Sodium 125 MCG 1 tablet in the morning on an empty stomach Orally Once a day Active Atorvastatin Calcium 80 MG 1 tablet Orally Once a day Active hydroCHLOROthiazide 12.5 MG 1 tablet in the morning Oral Once a day Active Caltrate 600+D 2 in the am and 1 in the pm Active Acetaminophen ER 650 MG 2 tablets as needed Orally every 8 hrs Active Advil 200 MG 1 tablet with food or milk as needed Orally Three times a day Active Tamoxifen Citrate 10 MG 1/2 tab Orally daily 5mg daily Active SOCIAL HISTORY Tobacco Use: Social History Observation Description Date Details (start date - stop date) Never Smoker NA - NA Sex Assigned At : Social History Observation Description Sex Assigned At Unknown Tobacco Use/Smoking Question Answer Notes Tobacco use: nonsmoker Section Notes: Lives in [place] with Dung. PROBLEMS Problem Type ICD Code Onset Dates Problem Status W/U Status Risk SNOMED Code Notes Problem Low hemoglobin (D64.9) Active confirmed Hemoglobin low ([id number]) VITAL SIGNS Blood pressure systolic 128 mm Hg 08/10/19 24 Blood pressure diastolic 78 mm Hg 024 Heart Rate 77 /min 08/10/2023 Height 66.6 in 08/10/2023 Weight 187.4 lbs 08/10/2023 BMI 29.7 kg/m2 08/10/2023 Oximetry 95 % 08/10/2023 Height-cm 169.16 cm 08/10/2023 Weight-kg 85 kg 08/10/2023 Encounters Encounter Location Date Provider Diagnosis [address] [phone] 08/10/2023 NORA CHIUPIOTR Type 2 diabetes mellitus with diabetic peripheral angiopathy without gangrene, without long-term current use of insulin E11.51 ; Low hemoglobin D64.9 and Hypomagnesemia E83.42 ASSESSMENTS Encounter Date Diagnosis Assessment Notes Treatment Notes Treatment Clinical Notes Section Notes 08/10/2023 Type 2 diabetes mellitus with diabetic peripheral angiopathy without gangrene, without long-term current use of insulin (ICD-10 - E11.51) Will order A1C as was not drawn with labs Pt admits not to taking metformin twice a day, previous A1C still over 7 and she has gained weight and she does not want to take Ozempic due to out of pocket cost despite having insurance coverage She is to restart her med regimen, int fasting and increase activity 08/10/2023 Low hemoglobin (ICD-10 - D64.9) Noted has history of anemia Will check iron, b12 and folate with today's labs Will follow up in 1 week 08/10/2023 Hypomagnesemia (ICD-10 - E83.42) Pt to restart her magnesium as now subtherapeutic without taking supplement Will continue to monitor 08/10/2023 Other Noted pt's calcium also dropped as she stopped taking her calcium She does not have any parathyroid due to surgical removal of thyroid Discussed need to take as directed Also followed by endocrine Total time spent with patient 20 minutes which includes face to face visit, education and coordination of care. PLAN OF TREATMENT Medication Medication Name Sig Start Date Stop Date Notes MAGnesium-Oxide 400 (240 Mg) MG 1 tablet with food Orally Once a day for 90 days 08/10/2023 09/09/2023 metFORMIN HCl ER 750 MG 1 tab with meal Orally twice a day for 90 days 08/10/2023 metFORMIN HCl 500 MG TAKE 1 TABLET BY [facility] WITH FOOD TWICE DAILY Treatment Notes Assessment Notes Type 2 diabetes mellitus wit h diabetic peripheral angiopathy without gangrene, without long-term current use of insulin Will order A1C as was not drawn with labs Pt admits not to taking metformin twice a day, previous A1C still over 7 and she has gained weight and she does not want to take Ozempic due to out of pocket cost despite having insurance coverage She is to restart her med regimen, int fasting and increase activity Low hemoglobin Noted has history of anemia Will check iron, b12 and folate with today's labs Will follow up in 1 week Hypomagnesemia Pt to restart her magnesium as now subtherapeutic without taking supplement Will continue to monitor Other Noted pt's calcium also dropped as she stopped taking her calcium She does not have any parathyroid due to surgical removal of thyroid Discussed need to take as directed Also followed by endocrine Next Appt Details Follow Up: 1 Week, Reason: l ab follow up telehealth Progress Notes * SALIMA GONZALEZ:[birth year] (67 yo F)Acc No.[id number]:08/10/2023 Progress Notes Patient:??ANGI GONZALEZ Provider:??NORA VELASCO NP :1955?Age:67 Y?Sex:Fe male Date:08/10/2023 Address:[address] [place], [place] [id number] Pcp:YULY CABA Subjective: * Chief Complaints: * ?F/U labs * HPI: ?Patient Care Team:?Claim Review Medical Director:??Dr. Moe Guzman.??[facility]??Orthopedic:??[facility], Dr. Chivo Ornelas.? Providers/Specialists: Dr. Angeles Latham, [facility] ?Sales Operations Consultant, Dr. Stu Spence ?Primary Care - Dr. Aldo Madera ?Dentist: [facility], [place], [place]. ?Visit info:? Angi presents in the office today to go over her lab results. ?-Pt has fallen off the wagon for a bit; has not been good about taking meds ?-Admits to not taking the calcium as low levels today ?-Still would have to pay $500 for ozempic and could not afford it ?-blood sugars 130's ?-Not taking mag. * ROS:?all systems reviewed and are non-contributory unless specified in the HPI. * Medical History:?? 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 * OB History:?? Histo ry:??Total pregnancies:??2,??Full-term pregnancies:??2.?? * Surgical History:??Angiogram reast Biopsy reast Surgery nee Surgery 2022Echo Stress Test 05/2022Treadmill Stress Test 06/2022MRI 06/2022thyroidectomy * Hospitalization/Major Diagno stic Procedure:?? * Family History:??Father: dec eased, hypertension, coronary artery disease, prostate cancer, glaucoma.??Mother: , hypertension, type 2 diabetes mellitus, osteoporosis, glaucoma.??Paternal Grandfather: .??Paternal Grandmother: .??Maternal Grandfather: .??Maternal Grandmother: .??Brother: alive, coronary artery disease.??Sister: alive.??Sister #2: .?? * Social History:?Tobacco Use:??Tobacco Use/Smoking??Tobacco use:??nonsmoker.?Drugs/Alcohol:??Do you smoke marijuana?: Denies. Do you drink alcohol?: Yes, Socially 1-2 monthly. 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 ?Lives in [place] with [place]. * Medications:??TakingTamoxife n Citrate 10 MG Tablet 1/2 tab Orally [...] an empty stomach Orally Once a day Losartan Potassium 50 MG Tablet 1 tablet Orally Once a day AeroChamber MV - Miscellaneous as directed metFORMIN HCl 500 MG Tablet TAKE 1 TABLET BY MOUTH WITH FOOD TWICE DAILY Taking Tamoxifen Citrate 10 MG Tablet 1/2 tab Orally daily 5mg daily, Notes to Pharmacist: 5mg dailyTaking Advil 200 MG Tablet 1 tablet with food or milk as needed Orally Three times a day Taking Acetaminophen ER 650 MG Tablet Extended Release 2 tablets as needed Orally every 8 hrs Taking Calcitriol 0.5 MCG Capsule 1 capsule Orally once a day Taking Caltrate 600+D , Notes to Pharmacist: 2 in the am and 1 in the pmTaking hydroCHLOROthiazide 12.5 MG Tablet 1 tablet in the morning Oral Once a day Taking Atorvastatin Calcium 80 MG Tablet 1 tablet Orally Once a day Taking Levothyroxine Sodium 125 MCG Tablet 1 tablet in the morning on an empty stomach Orally Once a day Taking Losartan Potassium 50 MG Tablet 1 tablet Orally Once a day Taking AeroChamber MV - Miscellaneous as directed Taking metFORMIN HCl 500 MG Tablet TAKE 1 TABLET BY MOUTH WITH FOOD TWICE DAILY Not-TakingMeclizine HCl 25 MG Tablet 1 tablet as [...] 2 MG/3ML Solution Pen-injector 0.25mg Subcutaneous weekly Medication List reviewed and reconciled with the patientNot-Taking Meclizine HCl 25 MG Tablet 1 tablet as needed Orally every 12 hrs Not-Taking Medrol 4 MG Tablet Therapy Pack as directed Orally daily take as packaged directedNot-Taking Azithromycin 250 MG Tablet as directed Orally daily take 2 tabs day one then one tab daily x 4 daysNot-Taking Albuterol Sulfate HFA 108 (90 Base) MCG/ACT Aerosol Solution 2 puff as needed Inhalation every 4 hrs take with spacerNot-Taking Ozempic (0.25 or 0.5 MG/DOSE) 2 MG/3ML Solution Pen-injector 0.25mg Subcutaneous weekly Medication List reviewed and reconciled with the patient * Allergies:??Sulfa Drugs: All ergyBactrimAugmentin Objective: * Vitals:??BP:128/78mm Hg, HR: 77/min, Oxygen sat %:95%, Wt:187.4lbs, Wt-k kg, Ht: 66.6 in, Ht-cm: 169.16 cm, BMI:29.7Index, Body Surface Area: 2. * Examination: ?General Examination: ?GEN: NAD, speaking in full complete sentences, thoughts clear and appropriate ?RESP: nonlabored breathing, lungs clear/equal all jovel ?CV: S1S2 regular ?NEURO: AO x 3 ?PSYCH: judgment/insight intact, NL mood/affect. Assessment: * Assessment: 1.??Type 2 diabetes mellitus with diabetic peripheral angiopathy without gangrene, without long-term current use of insulin - E11.51 (Primary)??2.??Low hemoglobin - D64.9??3.??Hypomagnesemia - E83.42?? Plan: * Treatment: 2.??Low hemoglobin?LAB: IRON, TIBC AND FERRITIN PANEL (5616) (Ordered for 08/10/2023) ?LAB: CARDIO IQ(R) HEMOGLOBIN A1c (15865) (Ordered for 08/10/2023) ?LAB: VITAMIN B12/FOLATE, SERUM PANEL (7065) (Ordered for 08/10/2023) Notes: Noted has history of anemia Will check iron, b12 and folate with today's labs Will follow up in 1 week? 3.??Hypomagnesemia?? Start MAGnesium-Oxide Tablet, 400 (240 Mg) MG, 1 tablet with food, Orally, Once a day, 90 days, 90 Tablet, Refills 3.? Notes: Pt to restart her magnesium as now subtherapeutic without taking supplement Will continue to monitor? 4.??Others?? Notes: Noted pt's calcium also dropped as she stopped taking her calcium She does not have any parathyroid due to surgical removal of thyroid Discussed need to take as directed Also followed by endocrine? Clinical Notes: Total time spent with patient 20 minutes which includes face to face visit, education and coordination of care.? * Procedure Codes:?? * Preventive Medicine:?Last CPE: 2021 Colonoscopy: Yes - normal Endoscopy: No DEXA: Yes, normal COVID Vac No Flu Vac: Yes for the season Shingles Vac: No PV Vac: No. * Follow Up:??1 Week (Reason: lab follow up telehealth) * Billing Information: * Visit Code:?? 42370 Office Visit, Est Pt., Level 3. * Procedure Codes:?? * Sign off status: Completed true * Provider:??NORA VELASCO NP Date:?? History and Physical Notes * HPI (History of Present Illness) Category Sub-Category Detail Notes Category Not es Patient Care Team Claim Review Medical Director: Dr. Moe Coleman Providers/Specialists : Dr. Angeles Latham, [facility] Sales Operations Consultant, Dr. Stu Spence Primary Care - Dr. Aldo Madera Dentist: [place], [place] Pediatric Cardiologist: [facility] [place], [place], Solitario Rondon Orthopedic: Dr. Chivo PARIKH Brother Visit info Angi presents in the office today to go over her lab results. -Pt has fallen off the wagon for a bit; has not been good about taking meds -Admits to not taking the calcium as low levels today -Still would have to pay $500 for ozempic and could not afford it -blood sugars 130's -Not taking mag Examination Category Sub-Category Detail Notes Category Not es General Examination GEN: NAD, speaking in full complete sentences, thoughts clear and appropriate RESP: nonlabored breathing, lungs clear/equal all jovel CV: S1S2 regular NEURO: AO x 3 PSYCH: judgment/insight intact, NL mood/affect
--- OUTSIDE RECORDS SUMMARY | 2024-06-28 10:22 | XMS_ITS | Patient Health Record ---
Author Organization [facility], [facility] Address [address] [place] [phone] Care Team Providers Care Yard Hand Name Role Phone YULY CABA Primary Care Provider [phone] NORA VELASCO Unavailable [phone] ALLERGIES Allergen (clinical drug ingredient) Drug/Non Drug Allergy documented on EMR Reaction Allergy Type Onset Date Status Substance with sulfonamide structure and antibacterial mechanism of action (substance) Sulfa Drugs (uncoded) Unknown Allergy Active amoxicillin / clavulanate Augmentin Unknown Drug Allergy Active sulfamethoxazole / trimethoprim Bactrim Unknown Drug Allergy Active RESULTS Component Value Reference Range Notes IRON, TIBC AND FERRITIN PANE L (5616) Reviewed date:08/12/2023 02:45:31 PM Interpretation: Performing Lab:NL2, [facility] [id number] Rosa Maria Grider Notes/Report: NON-FASTING FASTING:YES FASTING: YES IRON, TOTAL 61 45-160 mcg/dL IRON BINDING CAPACITY 333 250-450 mcg/dL (lynn c) % SATURATION 18 16-45 % (calc) FERRITIN 79 16-288 ng/mL CARDIO IQ(R) HEMOGLOBIN A1c (80672) Reviewed date:08/17/2023 06:29:50 AM Interpretation: Performing Lab:[facility], [address] [place], [place] [id number] Jimbo Wiley PhD,[facility] Notes/Report: NON-FASTING FASTING:YES FASTING: YES HEMOGLOBIN A1c 7.9 <5.7 % For someone without known diabetes, a hemoglobin A1c value of 6.5% or greater indicates that they may have diabetes, and this should be confirmed with a follow-up test. For someone with known diabetes, a value <7% indicates that their diabetes is well controlled and a value greater than or equal to 7% indicates suboptimal control. A1c targets should be individualized based on duration of diabetes, age, comorbid conditions, and other considerations. Currently, no consensus exists for use of hemoglobin A1c for diagnosis of diabetes for children. This test was performed on the Stefan génesis c503 platform. Effective 05/25/2023, a change in test platforms from the [employer]ising Producer to the Stefan génesis c503 may have shifted HbA1c results compared to historical results. Based on laboratory validation testing conducted at [facility] (powering [employer]), the Stefan platform relative to the [employer] platform had an average increase in HbA1c value of <=0.3%. This difference is within accepted variability established by the National Glycohemoglobin Standardization Program. Note that not all individuals will have had a shift in their results and direct comparisons between historical and current results for testing conducted on different platforms is not recommended. VITAMIN B12/FOLATE, SERUM JESSENIA WALKER (7065) Reviewed date:08/12/2023 02:45:31 PM Interpretation: Performing Lab:NL2, [facility] [id number] [place], [place] [id number] Rosa Maria Grider Notes/Report: NON-FASTING FASTING:YES FASTING: YES VITAMIN B12 618 575-7935 pg/mL FOLATE, SERUM >24.0 Reference Range Low: <3.4 Borderline: 3.4-5.4 Normal: >5.4 REASON FOR REFERRAL No Information MEDICATIONS Medication SIG (Take, Route, Frequency, Duration) Notes Start Date End Date Status FreeStyle Lancets - use as directed once daily for 90 days 09/16/2023 Active Atorvastatin Calcium 80 MG 1 tablet Oral ly Once a day Unknown Levothyroxine Sodium 125 MCG 1 tablet in the morning on an empty stomach Orally Once a day Unknown FreeStyle Lite Test - as directed In Vitro once daily for 90 days 09/16/2023 Active Losartan Potassium 50 MG Take 1 tablet b y mouth once daily for 90 Unknown Tamoxifen Citrate 10 MG 1/2 tab Orally daily 5mg daily Unknown Meclizine HCl 25 MG 1 tablet as needed Orally every 12 hrs for 30 days 03/12/2023 Unknown AeroChamber MV - as directed for 30 days 04/22/2023 Unknown metFORMIN HCl ER 750 MG 1 tab with meal Orally twice a day for 90 days 08/10/2023 Unknown Calcitriol 0.5 MCG 1 capsule Orally once a day Unknown Albuterol Sulfate HFA 108 (90 Base) MCG/ACT 2 puff as needed Inhalation every 4 hrs for 30 days 04/22/2023 Unknown Caltrate 600+D 2 in the am and 1 in the pm Unknown Ozempic (0.25 or 0.5 MG/DOSE) 2 MG/3ML 0.25mg Subcutaneous weekly for 30 days 04/22/2023 Unknown Advil 200 MG 1 tablet with food or milk as needed Orally Three times a day Unknown Medrol 4 MG as directed Orally daily for 6 days 04/22/2023 Unknown Acetaminophen ER 650 MG 2 tablets as nee ded Orally every 8 hrs Unknown Azithromycin 250 MG as directed Orally daily for 5 days 04/22/2023 Unknown hydroCHLOROthiazide 12.5 MG 1 tablet in the morning Oral Once a day Unknown SOCIAL HISTORY Tobacco Use: Social History Observation Description Date Details (start date - stop date) Never Smoker NA - NA Sex Assigned At : Social History Observation Description Sex Assigned At Unknown Tobacco Use/Smoking Question Answer Notes Tobacco use: nonsmoker Section Notes: Lives in [place] with [facility] and [facility]. Lives in [place] with [facility] and [place]. Lives in [place] with [facility] and Caesar. Lives in [place] with [facility] and [place]. Has two grown children 36 & 38. 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 Lives in [place] with [facility] and Caesar. Lives in [place] with [facility] and [employer]. Lives in [place] with [facility] and Caesar. Lives in [place] with [facility] and [place]. Lives in [place] with [facility] and [facility]. PROBLEMS Problem Type ICD Code Onset Dates Problem Status W/U Status Risk SNOMED Code Notes Problem Hypomagnesemia (E83.42) Active confirmed 352162249 Problem Hypercalcemia (E83.52) Active confirmed 10790020 Problem Essential (primary) hypertension (I10) Active confirmed 34456936 Problem Atherosclerosis of aorta (I70.0) Active confirmed 38471301 Problem Hyperlipidemia, unspecified hyperlipidemia type (E78.5) Active confirmed 17763241 Problem Elevated high sensitivity C-reactive protein (R79.82) Active confirmed 352204661515634 Problem Anemia, unspecified type (D64.9) Active confirmed 068005437 Problem Acquired hypothyroidism (E03.9) Active confirmed 902903123 Problem Type 2 diabetes mellitus with diabetic peripheral angiopathy without gangrene, without long-term current use of insulin (E11.51) Active confirmed 512421292 Problem 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) Active confirmed 25356159 Problem Low hemoglobin (D64.9) Active confirmed Hemoglobin low (180016052) VITAL SIGNS Heart Rate 77 /min 08/10/2023 Height-cm 169.16 cm 08/17/2023 Oximetry 95 % 08/10/2023 Blood pressure diastolic 78 mm Hg 08/10/2023 Weight-kg 85 kg 08/10/2023 Height 66.6 in 08/17/2023 Blood pressure systolic 128 mm Hg 08/10/2023 Weight 187.4 lbs 08/10/2023 BMI 29.7 kg/m2 08/10/2023 Encounters Encounter Location Date Provider Diagnosis [address] [id number] 07/01/[address] [id number] 07/28/[address] [id number] 08/10/2023 [facility] Type 2 diabetes mellitus with diabetic peripheral angiopathy without gangrene, without long-term current use of insulin E11.51 ; Low hemoglobin D64.9 and Hypomagnesemia E83.[address] [id number] 08/17/2023 [facility] Type 2 diabetes mellitus with diabetic peripheral angiopathy without gangrene, without long-term current use of insulin E11.[address] [id number] 07/26/2023 [facility] Type 2 diabetes mellitus with diabetic peripheral angiopathy without gangrene, without long-term current use of insulin E11.51 ; Hyperlipidemia, unspecified hyperlipidemia type E78.5 ; Essential (primary) hypertension I10 ; Anemia, unspecified type D64.9 ; Elevated high sensitivity C-reactive protein R79.82 and Hypomagnesemia E83.42 [facility], [address], [place] [id number] 09/16/2023 NORA VELASCO Type 2 diabetes mellitus with diabetic peripheral angiopathy without gangrene, without long-term current use of insulin E11.51 ASSESSMENTS Encounter Date Diagnosis Assessment Notes Treatment Notes Treatment Clinical Notes Section Notes 07/26/2023 Hyperlipidemia, unspecified hyperlipidemia type (ICD-10 - E78.5) 07/26/2023 Type 2 diabetes mellitus with diabetic peripheral angiopathy without gangrene, without long-term current use of insulin (ICD-10 - E11.51) 08/10/2023 Type 2 diabetes mellitus with diabetic [...] labs Will follow up in 1 week 08/17/2023 Type 2 diabetes mellitus with diabetic peripheral angiopathy without gangrene, without long-term current use of insulin (ICD-10 - E11.51) Discussed increased dose of metformin along with continued lifestyle changes Exercise int fasting Pt to excelsior picker all her labs to bring to next provider 09/16/2023 Type 2 diabetes mellitus with diabetic peripheral angiopathy without gangrene, without long-term current use of insulin (ICD-10 - E11.51) 08/10/2023 Hypomagnesemia (ICD-10 - E83.42) Pt to restart her magnesium as now subtherapeutic without taking supplement Will continue to monitor 07/26/2023 Essential (primary) hypertension (ICD-10 - I10) 07/26/2023 Anemia, unspecified type (ICD-10 - D64.9) 07/26/2023 Elevated high sensitivity C-reactive protein (ICD-10 - R79.82) 07/26/2023 Hypomagnesemia (ICD-10 - E83.42) 08/10/2023 Other Noted pt's calcium also dropped as she stopped taking her calcium She does not have any parathyroid due to surgical removal of thyroid Discussed need to take as directed Also followed by endocrine Total time spent with patient 20 minutes which includes face to face visit, education and coordination of care. 08/17/2023 Other Total time spen t with patient 20 minutes which includes face to face visit, education and coordination of care. PLAN OF TREATMENT Future Test Test Name Order Date VITAMIN D, 1,25 DIHYDROXY (13865) 2022 CBC (COMPLETE BLOOD COUNT) 03/12/2023 COMPREHENSIVE METABOLIC PANEL 03/12/2023 CRP, HIGH SENSITIVITY 03/12/2023 HEMOGLOBIN A1C 03/12/2023 MAGNESIUM 03/12/2023 COMPREHENSIVE METABOLIC PANEL (47854) MAGNESIUM (622) 07/27/2023 CBC (INCLUDES DIFF/PLT) (6399) CARDIO IQ(R) HS CRP (82222) 07/27/2023 CARDIO IQ(R) HEMOGLOBIN A1c (74128) 09/2023 Insurance Providers Payer Name Payer Address Payer Phone Subscriber Number Group Number Insured Name Patient Relationship to Insured Coverage Start Date Coverage End Date Medicare [address] [place] [address] [id number] ZONIA GONZALEZ Self - patient is the insured [facility] [address] [place] [address] [id number] ZONIA GONZALEZ Self - patient is the insured MEDICAL (GENERAL) HISTORY Medical History History ICD Code Osteoarthritis Breast Lump (Benign) [facility] - (B iopsy) Adult Onset Diabetes Hypertension Hyperlipidemia Thyroid Disease Surgical History Surgery Date(Month/Year) Angiogram 2022 Breast Biopsy 09/2021 Breast Surgery 04/2022 Knee Surgery 2022 Echo Stress Test 05/2022 Treadmill Stress Test 06/2022 MRI 06/2022 thyroidectomy
--- OUTSIDE RECORDS SUMMARY | 2024-06-28 10:22 | XMS_ITS ---
Author Organization [facility] Address [address] [place] [phone] Care Team Providers Care Hazardous Waste Management Specialist Name Role Phone YULY CABA Primary Care Provider AJITNORA CORLEY Unavailable [phone] ALLERGIES Allergen (clinical drug ingredient) Drug/Non Drug Allergy documented on EMR Reaction Allergy Type Onset Date Status Substance with sulfonamide structure and antibacterial mechanism of action (substance) Sulfa Drugs (uncoded) Unknown Allergy Active amoxicillin / clavulanate Augmentin Unknown Drug Allergy Active sulfamethoxazole / trimethoprim Bactrim Unknown Drug Allergy Active REASON FOR VISIT f/u labs MEDICATIONS Medication SIG (Take, Route, Frequency, Duration) Notes Start Date End Date Status Meclizine HCl 25 MG 1 tablet as needed Orally every 12 hrs for 30 days 03/12/2023 Not-Taking Medrol 4 MG as directed Orally daily for 6 days 04/22/2023 Not-Taking Azithromycin 250 MG as directed Orally daily for 5 days 04/22/2023 Not-Taking Albuterol Sulfate HFA 108 (90 Base) MCG/ACT 2 puff as needed Inhalation every 4 hrs for 30 days 04/22/2023 Not-Taking Losartan Potassium 50 MG Take 1 tablet b y mouth once daily for 90 Active metFORMIN HCl ER 750 MG 1 tab with meal Orally twice a day for 90 days 08/10/2023 Active MAGnesium-Oxide 400 (240 Mg) MG 1 tablet with food Orally Once a day for 90 days 08/10/2023 Active Atorvastatin Calcium 80 MG 1 tablet Orally Once a day Active Levothyroxine Sodium 125 MCG 1 tablet in the morning on an empty stomach Orally Once a day Active AeroChamber MV - as directed for 30 days 04/22/2023 Active Acetaminophen ER 650 MG 2 tablets as needed Orally every 8 hrs Active Calcitriol 0.5 MCG 1 capsule Orally once a day Active Caltrate 600+D 2 in the am and 1 in the pm Active Advil 200 MG 1 tablet with food or milk as needed Orally Three times a day Active hydroCHLOROthiazide 12.5 MG 1 tablet in the morning Oral Once a day Active Tamoxifen Citrate 10 MG 1/2 tab Orally daily 5mg daily Active Ozempic (0.25 or 0.5 MG/DOSE) 2 MG/3ML 0.25mg Subcutaneous weekly for 30 days 04/22/2023 Not-Taking SOCIAL HISTORY Tobacco Use: Social History Observation Description Date Details (start date - stop date) Never Smoker NA - NA Sex Assigned At : Social History Observation Description Sex Assigned At Unknown Tobacco Use/Smoking Question Answer Notes Tobacco use: nonsmoker Section Notes: Lives in [place] with [place]. VITAL SIGNS Height 66.6 in 08/17/2023 Height-cm 169.16 cm 08/17/2023 Encounters Encounter Location Date Provider Diagnosis [address] [id number] 08/17/2023 NORA VELASCO Type 2 diabetes mellitus with diabetic peripheral angiopathy without gangrene, without long-term current use of insulin E11.51 ASSESSMENTS Encounter Date Diagnosis Assessment Notes Treatment Notes Treatment Clinical Notes Section Notes 08/17/2023 Type 2 diabetes mellitus with diabetic peripheral angiopathy without gangrene, without long-term current use of insulin (ICD-10 - E11.51) Discussed increased dose of metformin along with continued lifestyle changes Exercise int fasting 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 Next Appt Details Follow Up: prn, Reason: unab le to stay with [facility] Progress Notes * FILIBERTO GONZALEZADOB:[birth year] (67 yo F)Acc No.[id number]:08/17/2023 Progress Note Patient:??ZONIA GONZALEZ Provider:??NORA VELASCO NP :1955?Age:67 Y?Sex:Fe male Date:08/17/2023 Address:[address] [place], [place] [phone] Pcp:YULY CABA Subjective: * Chief Complaints: * ?F/u labs * HPI: ?Patient Care Team:?Stab Setter And Driller:??Dr. Moe Guzman.??Road Conductor:??[facility], [place], Solitario Rondon.??Orthopedic:??[facility], Dr. Chivo Ornelas.? Providers/Specialists: Dr. Angeles Latham, [facility] ?Hot Die Press Operator, Dr. Stu Spence ?Primary Care - Dr. Aldo Madera ?Dentist: [facility], [place], [place]. ?Visit info:? The patient consents to HIPAA compliant telehealth visit using video platform within EHR system. The patient states they are in a private location in their home and the provider is located in the office in a private room. ?-Went back on meds, increased metformin. * ROS:?all systems reviewed and are non-contributory unless specified in the HPI. * Medical History:?? * Fleet Maintenance Manager History:??Menstrual hist ory:??Age of Menarche:??12,?Age of Menopause:??46.??Last pap smear date??2020 - Normal.??Last mammogram date??01/28/2022 - abnormal03/2022, 07/2022, 08/2022 - appointments with breast specialists.?? [...] 1-2 monthly. 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 ?Lives in [place] with [place]. * Medications:??TakingTamoxife n Citrate 10 [...] tab with meal Orally twice a day MAGnesium-Oxide 400 (240 Mg) MG Tablet 1 tablet with food Orally Once a day , stop date 09/09/2023Losartan Potassium 50 MG Tablet Take 1 tablet by mouth once daily Taking Tamoxifen Citrate 10 MG Tablet 1/2 [...] empty stomach Orally Once a day Taking AeroChamber MV - Miscellaneous as directed Taking metFORMIN HCl ER 750 MG Tablet Extended Release 24 Hour 1 tab with meal Orally twice a day Taking MAGnesium-Oxide 400 (240 Mg) MG Tablet 1 tablet with food Orally Once a day , stop date 09/09/2023Taking Losartan Potassium 50 MG Tablet Take 1 tablet by mouth once daily Not-TakingMeclizine HCl 25 MG Tablet 1 tablet [...] * Allergies:??Sulfa Drugs: All ergyBactrimAugmentin Objective: * Vitals:??BP: Not Taken - Tel [facility], Ht: 66.6 in, Ht-cm: 169.16 cm. * ?Past Orders: Lab:IRON, TIBC AND FERRITIN PANEL (5616) * Collection Date 08/10/2023 01/14/2023 Order Date 08/10/2023 12/16/2022 IRON, TOTAL 61 (Ref Range: 45-160 mcg/dL) 81 (Ref Range: 45-160 mcg/dL) IRON BINDING CAPACITY 333 (Ref Range: 250-450 mcg/dL (calc)) 320 (Ref Range: 250-450 mcg/dL (calc)) % SATURATION 18 (Ref Range: 16-45 % (calc)) 25 (Ref Range: 16-45 % (calc)) FERRITIN 79 (Ref Range: 16-288 ng/mL) 157 (Ref Range: 16-288 ng/mL) * Lab:VITAMIN B12/FOLATE, SERU M PANEL (7065) * Collection Date 08/10/2023 01/14/2023 Order Date 08/10/2023 12/16/2022 FOLATE, SERUM >24.0 (Ref Range: ng/mL) 17.6 (Ref Range: ng/mL) VITAMIN B12 463 (Ref Range: 200-1100 pg/mL) 420 (Ref Range: 200-1100 pg/mL) ?Lab:CARDIO IQ(R) HEMOGLOBIN A1c (01556) (Order Date - 08/10/2023) (Collection Date & Time - 08/10/2023 11:50 AM)?ValueReference Range?HEMOGLOBIN A1c7.9H<5.7 - % * Examination: ?General Examination: ?GEN: NAD, speaking in full complete sentences, thoughts clear and appropriate ?RESP: nonlabored breathing, no audible SOB/Wheezing ?NEURO: AO x 3 ?PSYCH: judgment/insight intact, NL mood/affect. Assessment: * Assessment: 1.??Type 2 diabetes mellitus with diabetic peripheral angiopathy without gangrene, without long-term current use of insulin - E11.51 (Primary)?? Plan: * Treatment: 2.??Others?? Notes: Total time spent with patient 20 minutes which includes face to face visit, education and coordination of care.? * Procedure Codes:?? * Preventive Medicine:?Last CPE: 2021 Colonoscopy: Yes - normal Endoscopy: No DEXA: Yes, normal COVID Vac No Flu Vac: Yes for the season Shingles Vac: No PV Vac: No. * Follow Up:??prn (Reason: blue ble to stay with [facility]) * Billing Information: * Visit Code:?? 75916 Office Visit, Est Pt., Level 3. * Procedure Codes:?? * Sign off status: Completed true * Provider:??NORA VELASCO NP Date:?? History and Physical Notes * HPI (History of Present Illness) Category Sub-Category Detail Notes Category Not es Patient Care Team Stab Setter And Driller: Dr. Moe Guzman Providers/Specialists : Dr. Angeles Latham, [facility] Hot Die Press Operator, Dr. Stu Spence Primary Care - Dr. Aldo Madera Dentist: [place], [place] Road Conductor: [place], [place], Solitario Rondon Orthopedic: Dr. Chivo PARIKH Brothamber Visit info The patient consents to HIPAA compliant telehealth visit using video platform within EHR system. The patient states they are in a private location in their home and the provider is located in the office in a private room. -Went back on meds, increased metformin Examination Category Sub-Category Detail Notes Category Not es General Examination GEN: NAD, speaking in full complete sentences, thoughts clear and appropriate RESP: nonlabored breathing, no audible SOB/Wheezing NEURO: AO x 3 PSYCH: judgment/insight intact, NL mood/affect
--- NOTE | 2024-06-28 10:26 | MHC.OFFWIV ---
Intake Vital Signs 06/28/24 10:30 Height 5 ft 5 in Weight 198 lb BMI 32.9 BP 130/76 Blood Pressure Location Lt brachial Position Sitting Respiration 13 Pulse 100 Pulse Source Pulse Oximeter Temp 98.2 F Temp Source Oral Pulse Oximetry (%) 98 Oxygen Delivery Method Room Air Intake Visit Reasons: sore throat/fevers/sinus Intake Note: Patient c/o sore throat, face pressure, feeling cold, night sweats, and headache x 3 days Patient Tobacco Use Status: Never used Tobacco Allergies amoxicillin Allergy (Severe, Verified 06/28/24 10:34) Rash clavulanic acid [From Augmentin] Allergy (Severe, Verified 06/28/24 10:34) Rash Sulfa (Sulfonamide Antibiotics) Allergy (Mild, Verified 06/28/24 10:34) Rash sulfamethoxazole [From Bactrim] Allergy (Unknown, Verified 06/28/24 10:34) Hives trimethoprim [From Bactrim] Allergy (Unknown, Verified 06/28/24 10:34) Hives Medication List - Last Reconciled 06/28/24 by GABRIEL King- atorvastatin 80 mg PO DAILY calcitriol 0.5 mcg PO DAILY cephalexin 500 mg PO QID hydrochlorothiazide 12.5 mg PO DAILY ibuprofen (Advil) 200 mg PO Q6H PRN levothyroxine (Levo-T) 125 mcg PO DAILY losartan 50 mg PO DAILY magnesium oxide 400 mg PO DAILY mecobalamin (vitamin B12) 1,000 mcg PO DAILY 90 days metformin ER 750 mg PO BID ondansetron 4 mg PO Q8H oxycodone-acetaminophen 2.5-300 mg 1 tab PO Q4-6H PRN tamoxifen 20 mg PO DAILY tamsulosin 0.4 mg PO DAILY Do you need a note to return to daycare/school/sports/work: Yes HPI HPI Comments History of Present Illness Details History - The patient is a 68-year-old female presenting with complaints of a sore throat, facial pressure, feeling cold, night sweats, and a headache. - Three days prior, she noted the onset of symptoms similar to those experienced by her son - The patient reports significant facial pressure, sore throat, and upper dental discomfort reflective of sinus involvement. - She has experienced feeling cold and energy depletion, - Wsit-ncx-hfisxgf medications used include Mucinex, Sudafed, and Afrin, with limited effect. Physical Exam General: Awake, alert. No apparent distress Eyes: Sclera and conjunctiva clear bilaterally Nose: Nares clear drainge, turbinates pale and edematous, no sinus tenderness with palpation bilaterally Ears: Tympanic membranes intact and clear bilaterally Throat: Moist mucosa membrane, pharynx within normal limits Cardiovascular: Regular rate and rhythm Respiratory: Clear to auscultation bilaterally Results - Labs, Tests, and Diagnostics: Nasal swab collected for COVID-19, influenza, and RSV testing. Discussion Notes I discussed with the patient the likely viral nature of her upper respiratory infection based on her symptoms and recent exposure to her son with similar complaints. We discussed the management options, including supportive care, symptomatic relief, and the avoidance of Afrin due to the potential for rebound congestion. I communicated to her the plan for testing for COVID-19, flu, and RSV, and advised that results are expected later in the day, contingent upon what the laboratory finds. The potential need for an antibiotic would be reassessed pending results. Return precautions were given, and the patient was advised to watch for any worsening symptoms or prolonged fever. Assessment and Plan 1. Acute Viral Upper Respiratory Infection The patient presents with symptoms of a viral upper respiratory infection, likely exacerbated by exposure to her ill son. Supportive care is advised. A nasal swab has been conducted for COVID-19, flu, and RSV testing, with results pending. Aqmr-dqo-hgxkbew medications are recommended for symptomatic relief, but Afrin is advised against. Further interventions will be guided by the test results expected later today. She will be called w/ results later today Patient Instructions - Stay hydrated and rest as much as possible. - Use ybig-gcs-namczdp medications such as Mucinex and Sudafed for symptomatic relief, but avoid Afrin nasal spray. - Monitor symptoms, and if experiencing worsening symptoms or fever, seek medical attention. - Expect a follow-up call with test results this evening to discuss further management. Consent Patient was informed and verbally consented to the use of an ambient scribe for clinic note documentation during this visit. Total time spent caring for the patient today was 30 minutes. This includes time spent before the visit reviewing the chart, time spent during the visit, and time spent after the visit on documentation, reviewing laboratory results, diagnostic imaging, medications, performing a medically necessary evaluation, counseling on diagnoses, care coordination, ordering appropriate tests, ordering appropriate medications, review of tests performed by other providers, reporting test results with the patient, communication with other healthcare providers. [facility] Medical History (Updated 06/28/24 @ 10:41 by Tara Argueta [facility]) Arthritis Atypical ductal hyperplasia of left breast Dense breast tissue on mammogram Diabetes History of bone scan Hx of mammogram Hypercholesterolemia Hypertension Hypothyroidism Obesity Surgical History History of thyroidectomy Hx of knee surgery Family History (Updated 02/11/24 @ 09:17 by Hilda James CMA) Father Prostate cancer Maternal Grandfather Prostate cancer Son Testicular cancer, Onset Age: 37 Maternal Grandmother Brain tumor Sister ALS (amyotrophic lateral sclerosis) Social History (Updated 02/11/24 @ 09:17 by Hilda James CMA) Housing: House Alcohol intake: current Alcohol intake frequency: a few times a month Patient Tobacco Use Status: Never used Tobacco e-Cigarette/Vaping Use: Never Used service: No Current occupational status: employed 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 Orders: Orders SARS-CoV2/FLU/RSV Today R09.89 - Other specified symptoms and signs involving the circulatory and respiratory systems, R68.89 - Other general symptoms and signs Coding Level of Care Code Est Pt Level 4 (41669) Diagnoses Flu-like symptoms R68.89
[2024-06-28 10:30] VITALS: BP 130/76; PULSE 100; RESP 13; TEMP 36.8; O2SAT 98; BMI 32.9
== END ==
LOC: HO.HMCWIW 09:33
PROVIDERS: PCP Internal Medicine; Visit Provider Nurse Practitioner Family
DX: R68.89 Other general symptoms and signs (principal)

== ENCOUNTER 2024-09-15 13:02 | Outpatient (REF) | payer MEDICARE, SELFPAY ==
--- OUTSIDE RECORDS SUMMARY | 2024-09-15 13:36 | XMS_ITS | Continuity of Care Document ---
Author Organization [facility] Address [address] [place] [address] Phone [phone] Care Team Providers Care Tag Clerk Name Role Phone Joycelyn See NP Care Team Information Receiv er [phone] Maureen Griffith M.D. Care Team Information Lingo Cleaner [phone] Problems Active Problems Provider Date Hypothyroidism Stu Spence M.D. Onset: Anemia Stu Spence M.D. Onset: 01/2023 Type 2 diabetes mellitus Stu Spence M.D. O nset: 03/01/2023 Essential hypertension Stu Spence M.D. Ons et: 10/01/2022 Hypoparathyroidism Stu Spence M.D. Onset: 10/01/2022 Prediabetes Stu Spence M.D. Onset: Social History Type Date Description Comments Sex Female Sex Unknown Tobacco Use Start: Unknown Never [...] the PM lilly Hodges M.D. 11/05/2023 Caltrate 600+[id number] Tablets take two tab in the Am and two in pm Stu Spence M.D. 10/01/2022 Isdnnpaotdeftxiexqs06. 5mg Capsules Take 1 Capsule By Mouth Once Daily For Blood Pressure 90caps Donna Hodges M.D. 08/31/2022 Levothyroxine Zqfnlc996pbb Tablets Take 1 tablet by mouth once daily 90tameche Hodges M.D. 08/20/2022 Losartan Hagkizxvv225zy Tablets Take half Tablet By Mouth Once Daily Aldo Madera M.D. Freestyle Lite TestStrips Use 1 Strip To Check Glucose Once Daily Fiorella Aguirre Atorvastatin Tfpfpja41wg Tablets Take 1 Tablet By Mouth AT Bedtime Aldo Madera M.D. Metformin HCL MU565js Tablets ER 24HR take 1 tablet by mouth twice a day 180tameche Hodges M.D. Magnesium-Beqbz466(240 Mg) mg Tablets Take 1 Tablet By Mouth Once Daily With Food Fiorella Aguirre Tamoxifen Oxyrenn12vb Tablets Take 1/2 (One-Half) Tablet By Mouth [...] T4 2.180 uIU/mL 0.450-4.5 00 Albumin 10/08/2022 [facility] Albumin 4.8 GM/DL (3.4-4.8) Calcium 10/08/2022 [facility] Calcium 9.1 mg/dL (8.6-10.5 ) TSH With Reflex To FT4 10/01/2022 [facility] TSH With Reflex To FT4 0.60 uIU/mL (0.4-4.2) Calcium 10/01/2022 [facility] Calcium 10.3 mg/dL (8.6-10.5 ) Albumin 10/01/2022 [facility] Albumin 4.9 GM/DL High (3.4-4.8) Glucose Fingerstick 10/01/2022 Inhouse Glucose Fingerstick 130 1 Vitamin D deficiency has been defined by the [place] of Medicine and an Endocrine Society practice guideline as a level of serum 25-OH vitamin D less than 20 ng/mL (1,2). The Endocrine Society went on to further define vitamin D insufficiency as a level between 21 and 29 ng/mL (2). 1. IOM ([place] of [employer]). 2010. Dietary reference intakes for calcium and D. [place]: The National Academies Press. 2. Irish MF, Brian JUNG, Alvarez PENDLETON, et al. Evaluation, treatment, and prevention of vitamin D deficiency: an Endocrine Society clinical practice guideline. JCEM. 2011 Sep; 96(7):1911-30. Medical Devices Description No Information Available Encounters Type Date Location Provider Dx Diagnosis Office Visit 02/14/2024 8:00a Main Office JESSENIA Trinh E89.0 Postprocedural hypothyroidism E89.2 Postprocedural hypop arathyroidism Assessments Date Code Description Provider 02/14/2024 E89.0 Postsurgical hypothyroidism JESSENIA Trinh 02/14/2024 E89.2 Postprocedural hypoparathyro idism JESSENIA Trinh Plan of Treatment Future Appointment(s):* 11/07/2024 8:30 am - Aidee Larson CNP at Main Office 11/05/2023 - JESSENIA Trinh* E20.9 Hypoparathyroidism, unspecified * E89.0 Postsurgical hypothyroidism * Functional Status Description No Information Available Mental Status Description No Information Available Referrals Description No Information Available
[2024-09-15 14:16] LABS: Appearance Urine Cloudy; Color Urine Yellow; Glucose Urine UA 250 mg/dL (Negative); Leukocyte Esterase Urine Large (3+) (Negative); Nitrite Urine Positive (Negative); PH 5.5 (5.0-9.0); UMIC TRIGGER UACC YES; Urine Blood Large (3+) (Negative); Urine Ketones Trace mg/dL (Negative); Urine Protein 30 (1+) mg/dL (Neg-Trace)
[2024-09-15 14:33] LABS: Calcium Oxalate Crystals Urine Present
[2024-09-15 14:38] LABS: Bacteria Urine 1+ (None Seen); Hyaline Casts Urine 0-2 /LPF (0-2); Squamous Epithelial Cell Urine 0-2 /HPF (0-2); UACC Culture Trigger YES; WBC Urine >50 /HPF (0-5)
== END 2024-09-15 13:03 | disposition home or self-care (01) ==
LOC: HO.WFDLDS 13:02
PROVIDERS: Visit Provider Internal Medicine
DX: R31.9 Hematuria, unspecified (principal)
CPT/HCPCS: 81001; 87086; 87088; 87186

== ENCOUNTER 2024-11-23 13:43 | Outpatient (REF) | payer MEDICARE, SELFPAY ==
[2024-11-23 18:28] LABS: Alanine Aminotransferase 15 U/L (0-31); Albumin Level 4.4 g/dL (3.5-5.0); Alkaline Phosphatase 87 U/L (39-117); Anion Gap 16 (12-20); Aspartate Amino Transferase 20 U/L (5-31); Blood Urea Nitrogen 22 mg/dL (9-16); Calcium 7.6 mg/dL (8.4-10.2); Carbon Dioxide 25 mmol/L (22-29); Chloride 103 mmol/L (96-108); Estimated Glomerular Filt Rate 53; Potassium 4.1 mmol/L (3.3-5.1); Sodium 140 mmol/L (135-145); Total Protein 7.3 g/dL (6.5-8.0)
== END 2024-11-23 13:44 | disposition home or self-care (01) ==
LOC: HO.WFDLDS 13:43
PROVIDERS: PCP Internal Medicine; Visit Provider Internal Medicine
DX: E11.69 Type 2 diabetes mellitus with other specified complication (principal); I10 Essential (primary) hypertension; E78.00 Pure hypercholesterolemia, unspecified; M25.841 Other specified joint disorders, right hand
CPT/HCPCS: 36415; 80053; 83036; 86200; 86431; 99212

== ENCOUNTER 2024-11-23 13:43 | Outpatient (AMB) | payer MEDICARE, SELFPAY ==
--- NOTE | 2024-11-23 13:59 | MHC.PC.OV ---
Vital Signs 11/23/24 14:03 Height 5 ft 5 in Weight 196 lb 6 oz BMI 32.7 BP 118/82 Blood Pressure Location Rt brachial Position Sitting Respiration 13 Pulse 88 Pulse Source Pulse Oximeter Temp 97.4 F Temp Source Temporal Artery Scan Pulse Oximetry (%) 96 Oxygen Delivery Method Room Air Intake Visit Reasons: Finger check up Intake Note: Angi presents in the office today for a check of her middle finger on her right hand. Allergies amoxicillin Allergy (Severe, Verified 11/23/24 14:02) Rash clavulanic acid (From Augmentin) Allergy (Severe, Verified 11/23/24 14:02) Rash Sulfa (Sulfonamide Antibiotics) Allergy (Mild, Verified 11/23/24 14:02) Rash sulfamethoxazole (From Bactrim) Allergy (Unknown, Verified 11/23/24 14:02) Hives trimethoprim (From Bactrim) Allergy (Unknown, Verified 11/23/24 14:02) Hives Tobacco use date assessed: 11/23/24 Dental Screening Dental Screen Date: 11/23/24 Did you have a dental visit in the last 12 months?: Yes Did you have a dental problem in the last 6 months where you did not have access to dental care?: No Was dental information given to patient?: Patient has dentist HPI HPI Comments History of Present Illness Details The patient is a 69-year-old female with a past medical history of hypertension, type 2 diabetes, hypothyroid, hyperlipidemia, osteoarthritis, breast mass presenting for follow up Endo: Follows with endocrinology Type 2 diabetes: Patient is currently on metformin 500 mg twice daily. A1C is 7.1% On Arb and statin. Sees Ophthalmology, Dr R[place] in [place]. Hypothyroid: s/p partial or total thyroidectomy CV: Follows with Dr. Guzman. She is taking hydrochlorothiazide 12.5 mg daily, losartan 50 mg daily, atorvastatin 80 mg daily and ASA 81mg daily. She had an episode of left shoulder pain a few days ago. No chest pain. Strong family history of CAD/ACS MSK: She follows [facility], Dr. Foster. She underwent left total knee replacement in 11/08/2022, right knee replacement 12/03/23. She would like a referral for a DIP cyst that has become increasingly painful over time Colon cancer screening: Colonoscopy at [place] with Dr Kolek. She believes overdue ROS see HPI PHYSICAL EXAM: GENERAL: Alert and oriented x 3. NAD EYES: EOMI. Anicteric. HENT: Moist mucous membranes. No scleral icterus. No cervical lymphadenopathy. LUNGS: Clear to auscultation bilaterally. CARDIOVASCULAR: Regular rate and rhythm. No murmur. No JVD. ABDOMEN: Soft, non-tender +bs EXTREMITIES: No edema. Non-tender. MSK: Enlarged small joints of the fingers. Tender second right DIP cyst SKIN: No rashes or lesions. Warm. NEUROLOGIC: No focal neurological deficits. CN II-XII grossly intact PSYCHIATRIC: Cooperative. Appropriate mood and affect [facility] Medical History (Updated 11/27/24 @ 16:00 by Maureen Sapp MD) History of bone scan Hx of mammogram Obesity Hypothyroidism Hypercholesterolemia Hypertension Diabetes Dense breast tissue on mammogram Atypical ductal hyperplasia of left breast Arthritis Surgical History History of thyroidectomy Hx of knee surgery Family History Father Prostate cancer Maternal Grandfather Prostate cancer Son Testicular cancer, Onset Age: 37 Maternal Grandmother Brain tumor Sister ALS (amyotrophic lateral sclerosis) Social History (Updated 11/23/24 @ 14:03 by Ani Toledo MA) Housing: House Alcohol intake: current Alcohol intake frequency: a few times a month Patient Tobacco Use Status: Never used Tobacco e-Cigarette/Vaping Use: Never Used Second Hand Smoke Exposure: No service: No Current occupational status: employed 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 [employer] Gender identity: Female Cognitive needs: No Hearing needs: No Vision needs: No Questionnaire Thrive Questionnaire Date Thrive assessed: 04/28/24 I am a: Patient What is your living situation today?: I have a steady place to live Within the past 12 months, did the food you bought not last and you didn't have the money to get more?: Never true Within the past 12 months, did you worry whether your food would run out before you got money to buy more?: Never true Do you have trouble paying for medicines?: No Do you have trouble getting transportation to medical appointments?: No Do you have trouble paying your heating and electricity bill?: No Do you have trouble taking care of your child, family member or friend?: No Do you have trouble with day-to-day activities such as bathing, preparing meals, shopping, managing finances, etc.?: No Are you currently unemployed and looking for a job?: No Are you interested in more education?: No Please select the resources that you would like help with: None Currently or been in a relationship where the following occur: No concerns reported THRIVE Score: 0 CRISTOPHER-7 AMB Questionnaire CRISTOPHER-7 Date CRISTOPHER - 7 assessed: 04/28/24 Source: Developed by Drs. Tony Lin, Fiorella Garza, Mracio Glass and colleagues, with an educational jen from [email or web address]. Physical exam (Primary Care) Vital Signs: Last Vital Signs Temp 97.4 F 11/23/24 14:03 Pulse 88 11/23/24 14:03 Resp 13 11/23/24 14:03 BP 118/82 11/23/24 14:03 Pulse Ox 96 11/23/24 14:03 Oxygen Delivery Method Room Air 11/23/24 14:03 BMI result Body Mass Index 32.7 Tobacco/Smoking Status: Tobacco use Status Tobacco use date assessed 11/23/24 11/23/24 14:08 Patient Tobacco Use Status Never used Tobacco 11/23/24 14:03 e-Cigarette/Vaping Use Never Used 11/23/24 14:03 Thrive Assessment: Date of Thrive Assessment Date Thrive assessed 04/28/24 11/23/24 14:01 Currently or been in a relationship where the following occur: No concerns reported Coding Level of Care Code Est Pt Level 4 (21498) Diagnoses Type 2 diabetes mellitus with other specified complication, without long-term current use of insulin E11.69 Diabetes mellitus complication status: with other specified complication 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: without 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 supervisor use Diabetes mellitus type: type 2 Primary hypertension I10 Hypertension type: primary hypertension Hypercholesterolemia E78.00 Cyst of joint of right hand M25.841 Laterality: right Assessment & Plan Assessment & Plan (1) Diabetes: Code(s): E11.9 - Type 2 diabetes mellitus without complications Category: Medical Qualifiers: Diabetes mellitus complication status: with other specified complication Diabetes mellitus senior care insulin use: without 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 supervisor use Diabetes mellitus type: type 2 Qualified Code(s): E11.69 - Type 2 diabetes mellitus with other specified complication (2) Hypertension: Code(s): I10 - Essential (primary) hypertension Category: Medical Qualifiers: Hypertension type: primary hypertension Qualified Code(s): I10 - Essential (primary) hypertension (3) Hypercholesterolemia: Code(s): E78.00 - Pure hypercholesterolemia, unspecified Category: Medical (4) Cyst of joint of hand: Code(s): M25.849 - Other specified joint disorders, unspecified hand Category: Medical Qualifiers: Laterality: right Qualified Code(s): M25.841 - Other specified joint disorders, right hand Plan Right hand cyst-referral to orthopedics/hand DM-recently seen by endocrinology CV-HTN controlled Orders: Orders Hemoglobin A1c 11/23/24 E11.69 - Type 2 diabetes mellitus with other specified complication, E78.00 - Pure hypercholesterolemia, unspecified, I10 - Essential (primary) hypertension, M25.849 - Other specified joint disorders, unspecified hand Comprehensive Met. Panel 11/23/24 E11.69 - Type 2 diabetes mellitus with other specified complication, E78.00 - Pure hypercholesterolemia, unspecified, I10 - Essential (primary) hypertension, M25.849 - Other specified joint disorders, unspecified hand Rheumatoid Factor 11/23/24 E11.69 - Type 2 diabetes mellitus with other specified complication, E78.00 - Pure hypercholesterolemia, unspecified, I10 - Essential (primary) hypertension, M25.849 - Other specified joint disorders, unspecified hand Cyclic Citrullinated Peptide 11/23/24 E11.69 - Type 2 diabetes mellitus with other specified complication, E78.00 - Pure hypercholesterolemia, unspecified, I10 - Essential (primary) hypertension, M25.849 - Other specified joint disorders, unspecified hand Referrals Gastroenterology Referral Z12.11 - Encounter for screening for malignant neoplasm of colon Orthopedics Referral M25.849 - Other specified joint disorders, unspecified hand
[2024-11-23 14:03] VITALS: BP 118/82; PULSE 88; RESP 13; TEMP 36.3; O2SAT 96; BMI 32.7
--- OUTSIDE RECORDS SUMMARY | 2024-11-23 15:00 | XMS_ITS | Continuity of Care Document ---
Author Organization [facility] Address [address] [place] [address] Phone [phone] Care Team Providers [employer] Assistant Principal Name Role Phone Joycelyn See NP Care Team Information Receiv er [phone] Maureen Griffith M.D. Care Team Information Car Trimmer [phone] Problems Active Problems Provider Date Hypothyroidism Stu [...] the PM lilly Hodges M.D. 11/05/2023 Caltrate 600+[id number] Tablets take two tab in the Am and two in pm Stu Spence M.D. 10/01/2022 Azrqtcuarqubjknpzyz38. 5mg Capsules Take 1 Capsule By Mouth Once Daily For Blood Pressure 90caps Donna Hodges M.D. 08/31/2022 Levothyroxine Hgfigy146gzp Tablets Take 1 tablet by mouth once daily 90tameche Hodges M.D. 08/20/2022 Losartan Xwfnbwtnr533uo Tablets Take half Tablet By Mouth Once Daily Aldo Madera M.D. Freestyle Lite TestStrips Use 1 Strip To Check Glucose Once Daily Fiorella Aguirre Atorvastatin Nahtzta68oe Tablets Take 1 Tablet By Mouth AT Bedtime Aldo Madera M.D. Metformin HCL [id number] Tablets ER 24HR take 1 tablet by mouth twice a day 180tameche Hodges M.D. Magnesium-Vnpqv514(240 Mg) mg Tablets Take 1 Tablet By Mouth Once Daily With Food Fiorella Aguirre Tamoxifen Aysodgu10kx Tablets Take 1/2 (One-Half) Tablet By Mouth Once Daily Rasheeda Brock Dndnriruzfz1ue Tablets Dispers Dissolve 1 Tablet In Mouth Every 8 Hours as Needed For Nausea And Vomiting Unknown Oxycodone-Acetaminophe n5-325mg Tablets Take 1 Tablet By Mouth Every 6 Hours as Needed For Severe Pain Unknown Vitamin [id number] Tablets 1 by mouth every day Unknown Vital Signs Date Vital Result Comment 11/07/2024 8:19am BP Systolic 134 mmHg BP Diastolic 80 mmHg Heart Rate 80 /min Height 66 inches 5'6 Weight 198.38 lb BMI (Body Mass Index) 32.0 kg/m2 Results Test Acquired Date Facility Test Result H/L Range Note TSH Rfx on Abnormal to Free T4 11/07/2024 [facility] TSH Rfx on Abnormal to Free T4 3.220 uIU/mL 0.450-4.5 00 Calcium 11/07/2024 [facility] Calcium 8.8 mg/dL 8.7-10.3 Vitamin D, 25-Hydroxy 11/07/2024 [facility] Vitamin D, 25-Hydroxy 39.1 ng/mL 30.0-100. 0 1 Albumin 11/07/2024 [facility] Albumin 4.5 g/dL 3.9-4.9 Phosphorus 11/07/2024 [facility] Phosphorus 4.2 mg/dL 3.0-4.3 Calcium 02/08/2024 [facility] Calcium 9.9 mg/dL 8.7-10.3 Albumin 02/08/2024 [facility] Albumin 4.5 g/dL 3.9-4.9 Phosphorus 02/08/2024 [facility] Phosphorus 3.7 mg/dL 3.0-4.3 Vitamin D, 25-Hydroxy 02/08/2024 [facility] Vitamin D, 25-Hydroxy 38.4 ng/mL 30.0-100. 0 2 TSH Rfx on Abnormal to Free T4 11/05/2023 [facility] TSH Rfx on Abnormal to Free T4 2.180 uIU/mL 0.450-4.5 00 Albumin 10/08/2022 [facility] Albumin 4.8 GM/DL (3.4-4.8) Calcium 10/08/2022 [facility] Calcium 9.1 mg/dL (8.6-10.5 ) TSH With Reflex To FT4 10/01/2022 [facility] TSH With Reflex To FT4 0.60 uIU/mL (0.4-4.2) Calcium 10/01/2022 [facility] Calcium 10.3 mg/dL (8.6-10.5 ) Albumin 10/01/2022 [facility] Albumin 4.9 GM/DL High (3.4-4.8) Glucose Fingerstick 10/01/2022 [facility] Glucose Fingerstick 130 1 Vitamin D deficiency has been defined by the [place] of [employer] and an Endocrine Society practice guideline as a level of serum 25-OH vitamin D less than 20 ng/mL (1,2). The Endocrine Society went on to further define vitamin D insufficiency as a level between 21 and 29 ng/mL (2). 1. IOM ([place] of [employer]). 2010. Dietary reference intakes for calcium and D. [place]: The National Academies Press. 2. Irihs MF, Brian NC, Alvarez PENDLETON, et al. Evaluation, treatment, and prevention of vitamin D deficiency: an Endocrine Society clinical practice guideline. JCEM. 2011 Sep; 96(7):1911-30. 2 Vitamin D deficiency has been defined by the [place] of [employer] and an Endocrine Society practice guideline as a level of serum 25-OH vitamin D less than 20 ng/mL (1,2). The Endocrine Society went on to further define vitamin D insufficiency as a level between 21 and 29 ng/mL (2). 1. IOM ([place] of [employer]). 2010. Dietary reference intakes for calcium and D. [place]: The National Academies Press. 2. Irish MF, Brian JUNG, Alvarez PENDLETON, et al. Evaluation, treatment, and prevention of vitamin D deficiency: an Endocrine Society clinical practice guideline. JCEM. 2010; 96(7):1911-30. Medical Devices Description No Information Available Encounters Type Date Location Provider Dx Diagnosis Office Visit 11/07/2024 8:30a Main Office Aidee Larson CNP E89.0 Postprocedural hypothyroidism E89.2 Postprocedural hypop arathyroidism Assessments Date Code Description Provider 11/07/2024 E89.0 Postsurgical hypothyroidism Aidee Larson CNP 11/07/2024 E89.2 Postprocedural hypoparathyro idism Aidee Larson CNP Plan of Treatment Future Appointment(s):* 03/09/2025 8:30 am - Aidee Larson CNP at Main Office 11/05/2023 - JESSENIA Trinh* E20.9 Hypoparathyroidism, unspecified * E89.0 Postsurgical hypothyroidism * Functional Status Description No Information Available Mental Status Description No Information Available Referrals Description No Information Available
--- OUTSIDE RECORDS SUMMARY | 2024-11-23 15:00 | XMS_ITS | Clinical Summary ---
Author Organization [facility] Address [address] [place] [address] Care Team Providers Care Communications Writer Name Role Phone Unavailable Primary Care Provider [...] 2) 09/11/2005 Colorectal Cancer Screening: Colonoscopy 04/20/2023 Falls Risk Assessment 04/20/2023 Hepatitis C Screening 04/20/2023 Osteoporosis Screening (Bone Density Screening) 04/20/2023 Social Influencers of Health Screening 04/20/2023 Depression Screening 03/22/2024 COVID-19 Vaccine ( - 2023-2 5 season) 2024 Influenza Vaccine (#1) 2024 RSV Immunization Adult Patie nts (1 - [...]
== END 2024-11-23 14:46 | disposition home or self-care (01) ==
LOC: HO.HMCFM 13:44
PROVIDERS: PCP Internal Medicine; Visit Provider Internal Medicine
DX: E11.69 Type 2 diabetes mellitus with other specified complication (principal); I10 Essential (primary) hypertension; E78.00 Pure hypercholesterolemia, unspecified; M25.841 Other specified joint disorders, right hand

== ENCOUNTER 2025-02-27 08:44 | Outpatient (AMB) | payer MEDICARE, SELFPAY ==
[2025-02-27 08:50] VITALS: BP 122/74; PULSE 89; RESP 14; TEMP 36.7; O2SAT 98; BMI 28.1
--- NOTE | 2025-02-27 08:50 | A.OFFPC_ITS ---
Vital Signs 02/27/25 08:50 Height 5 ft 5 in Weight 169 lb BMI 28.1 BP 122/74 Blood Pressure Location Lt brachial Position Sitting Respiration 14 Pulse 89 Pulse Source Pulse Oximeter Temp 98.1 F Temp Source Oral Pulse Oximetry (%) 98 Oxygen Delivery Method Room Air Intake Visit Reasons: DM Intake Note: Diabetes follow up. 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[employer] Required: No Allergies amoxicillin Allergy (Severe, Verified 02/27/25 08:53) Rash clavulanic acid (From Augmentin) Allergy (Severe, Verified 02/27/25 08:53) Rash Sulfa (Sulfonamide Antibiotics) Allergy (Mild, Verified 02/27/25 08:53) Rash sulfamethoxazole (From Bactrim) Allergy (Unknown, Verified 02/27/25 08:53) Hives trimethoprim (From Bactrim) Allergy (Unknown, Verified 02/27/25 08:53) Hives Tobacco use date assessed: 02/27/25 Fall risk assessment: 1 Fall in past year Last assessed Fall Risk: 02/27/25 Dental Screening Dental Screen Date: 11/23/24 HPI HPI Comments History of Present Illness Details The patient is a 69-year-old female with a past medical history of hypertension, type 2 diabetes, hypothyroid, hyperlipidemia, osteoarthritis, breast mass presenting for follow up Type 2 diabetes: Patient is currently on metformin 750mg twice daily. A1C is 7.9% from 7.1% On Arb and statin. Sees Ophthalmology, Dr Rondon in [place]. Hypothyroid: s/p partial or total thyroidectomy. Following with endocrine CV: Has seen Dr. Guzman. She is taking hydrochlorothiazide 12.5 mg daily, losartan 50 mg daily, atorvastatin 80 mg daily and ASA 81mg daily. MSK: She follows with [facility], Dr. Foster. She underwent left total knee replacement in 11/08/2022, right knee replacement 12/03/23. She saw ortho for a DIP cyst Colon cancer screening: Colonoscopy at [place] with Dr Brunner. Mar 06 11a Abimbola Luna and will schedule thereafter Mammogram 02/26/2025 [facility] ROS see HPI PHYSICAL EXAM: GENERAL: Alert and oriented x 3. NAD EYES: EOMI. Anicteric. HENT: Moist mucous membranes. No scleral icterus. No cervical lymphadenopathy. LUNGS: Clear to auscultation bilaterally. CARDIOVASCULAR: Regular rate and rhythm. No murmur. No JVD. ABDOMEN: Soft, non-tender +bs EXTREMITIES: No edema. Non-tender. MSK: Enlarged small joints of the fingers. Tender second right DIP cyst SKIN: No rashes or lesions. Warm. NEUROLOGIC: No focal neurological deficits. CN II-XII grossly intact PSYCHIATRIC: Cooperative. Appropriate mood and affect [facility] Medical History (Updated 11/27/24 @ 16:00 by Maureen Sapp MD) History of bone scan Hx of mammogram Obesity Hypothyroidism Hypercholesterolemia Hypertension Diabetes Dense breast tissue on mammogram Atypical ductal hyperplasia of left breast Arthritis Surgical History History of thyroidectomy Hx of knee surgery Family History Father Prostate cancer Maternal Grandfather Prostate cancer Son Testicular cancer, Onset Age: 37 Maternal Grandmother Brain tumor Sister ALS (amyotrophic lateral sclerosis) Social History (Updated 11/23/24 @ 14:03 by Ani Toledo MA) Housing: House Alcohol intake: current Alcohol intake frequency: a few times a month Patient Tobacco Use Status: Never used Tobacco e-Cigarette/Vaping Use: Never Used Second Hand Smoke Exposure: No service: No Current occupational status: employed 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 [employer] Gender identity: Female Cognitive needs: No Hearing needs: No Vision needs: No Questionnaire Thrive Questionnaire Date Thrive assessed: 04/28/24 I am a: Patient What is your living situation today?: I have a steady place to live Within the past 12 months, did the food you bought not last and you didn't have the money to get more?: Never true Within the past 12 months, did you worry whether your food would run out before you got money to buy more?: Never true Do you have trouble paying for medicines?: No Do you have trouble getting transportation to medical appointments?: No Do you have trouble paying your heating and electricity bill?: No Do you have trouble taking care of your child, family member or friend?: No Do you have trouble with day-to-day activities such as bathing, preparing meals, shopping, managing finances, etc.?: No Are you currently unemployed and looking for a job?: No Are you interested in more education?: No Please select the resources that you would like help with: None Currently or been in a relationship where the following occur: No concerns reported THRIVE Score: 0 AUDIT C Alcohol Use Questionnaire (AUDIT-C) 1. How often do you have a drink containing alcohol?: Monthly or less 2. How many drinks containing alcohol do you have on a typical day when you are drinking?: 1 or 2 3. How often do you have six or more drinks on one occasion?: Never Total Score: 1 CRISTOPHER-7 AMB Questionnaire CRISTOPHER-7 Date CRISTOPHER - 7 assessed: 04/28/24 Source: Developed by Drs. Tony Lin, Fiorella Garza, Marcio Glass and colleagues, with an educational jen from [employer]. Physical exam (Primary Care) Vital Signs: Last Vital Signs Temp 98.1 F 02/27/25 08:50 Pulse 89 02/27/25 08:50 Resp 14 02/27/25 08:50 BP 122/74 02/27/25 08:50 Pulse Ox 98 02/27/25 08:50 Oxygen Delivery Method Room Air 02/27/25 08:50 BMI result Body Mass Index 28.1 Tobacco/Smoking Status: Tobacco use Status Tobacco use date assessed 02/27/25 02/27/25 08:59 Patient Tobacco Use Status Never used Tobacco 02/27/25 08:53 e-Cigarette/Vaping Use Never Used 02/27/25 08:53 Thrive Assessment: Date of Thrive Assessment Date Thrive assessed 04/28/24 02/27/25 08:53 Currently or been in a relationship where the following occur: No concerns reported Results AMB Hemoglobin A1c AMB Hemoglobin A1c 7.9 % Last Edit by Hilda James CMA on 02/27/25 09:34 Results Reviewed Results Reviewed: Laboratory Last Values Hgb A1c (Clinic) 7.9 % (4.0-6.0) H 02/27/25 09:00 Coding Level of Care Code Complex visit Add On G2211 Diagnoses Type 2 diabetes mellitus with other specified complication, without long-term current use of insulin E11.69 Diabetes mellitus type: type 2 Diabetes mellitus rn long term care insulin use: without rn long term care use Diabetes mellitus complication status: with other specified complication Primary hypertension I10 Hypertension type: primary hypertension Hypercholesterolemia E78.00 Assessment & Plan Assessment & Plan (1) Diabetes: Code(s): E11.9 - Type 2 diabetes mellitus without complications Category: Medical Qualifiers: Diabetes mellitus type: type 2 Diabetes mellitus [facility] insulin use: without rn long term care use Diabetes mellitus complication status: with other specified complication Qualified Code(s): E11.69 - Type 2 diabetes mellitus with other specified complication (2) Hypertension: Code(s): I10 - Essential (primary) hypertension Category: Medical Qualifiers: Hypertension type: primary hypertension Qualified Code(s): I10 - Essential (primary) hypertension (3) Hypercholesterolemia: Code(s): E78.00 - Pure hypercholesterolemia, unspecified Category: Medical Plan Type 2 diabetes, suboptimal control-start mounjaro 2.5mg weekly. continue metformin HTN-well controlled on current medications. Efforts toward weight loss. Hypothyroid-continue endocrine follow up Colonoscopy pending. Mammo UTD Orders: Orders AMB Hemoglobin A1c Today E11.69 - Type 2 diabetes mellitus with other specified complication Complete Blood Count Auto Diff 3 Months E11. - Type 2 diabetes mellitus with other specified complication, R53.83 - Other fatigue IRON PROFILE 3 Months E11. - Type 2 diabetes mellitus with other specified complication, R53.83 - Other fatigue TSH reflex Free T4 3 Months E11. - Type 2 diabetes mellitus with other specified complication, R53.83 - Other fatigue Hemoglobin A1c 3 Months E11. - Type 2 diabetes mellitus with other specified complication, R53.83 - Other fatigue Comprehensive Met. Panel 3 Months E11. - Type 2 diabetes mellitus with other specified complication, R53.83 - Other fatigue Lipid Panel 3 Months E11. - Type 2 diabetes mellitus with other specified complication, R53.83 - Other fatigue Vitamin B12 and Folate 3 Months E11.69 - Type 2 diabetes mellitus with other specified complication, R53.83 - Other fatigue Medications: New Mounjaro (tirzepatide) 2.5 mg (0.5 mL) subcut QWEEK 2 mL 3RF NS E03.9 - Hypothyroidism, unspecified, E11.69 - Type 2 diabetes mellitus with other specified complication, I10 - Essential (primary) hypertension ondansetron HCl 4 mg PO Q8H PRN 60 tabs 1RF nausea and vomiting Discontinued ciprofloxacin HCl (Cipro) Discontinued Reason: Doctor's Order 500 mg PO BID 14 tabs 0RF
== END 2025-02-27 09:23 | disposition home or self-care (01) ==
LOC: HO.HMCFM 08:45
PROVIDERS: PCP Internal Medicine; Visit Provider Internal Medicine
DX: E11.69 Type 2 diabetes mellitus with other specified complication (principal); I10 Essential (primary) hypertension; E78.00 Pure hypercholesterolemia, unspecified

== ENCOUNTER → 2025-02-27 08:44 | Outpatient (BNVA) | payer MEDICARE, SELFPAY | PROVIDERS: PCP Internal Medicine; Visit Provider Internal Medicine | DX: E11.69 Type 2 diabetes mellitus with other specified complication (principal); I10 Essential (primary) hypertension; E78.00 Pure hypercholesterolemia, unspecified; E89.0 Postprocedural hypothyroidism; Z79.82 Long term (current) use of aspirin; Z79.84 Long term (current) use of oral hypoglycemic drugs; Z79.899 Other long term (current) drug therapy; Z96.653 Presence of artificial knee joint, bilateral | CPT/HCPCS: 83036; 99212 ==